=== PATIENT | female | born 1980 | race Caucasian/White ===

== ENCOUNTER 2020-02-13 00:23 | Outpatient (REF) | payer OTHER, SELFPAY ==
[2020-02-13 01:52] LABS: SARS COV2 PCR INHOUSE NEGATIVE (Negative)
== END 2020-02-13 00:24 | disposition home or self-care (01) ==
LOC: HO.LAB 00:23
PROVIDERS: Visit Provider Emergency Medicine
DX: Z20.828 Contact with and (suspected) exposure to other viral communicable diseases (principal)
CPT/HCPCS: 87635

== ENCOUNTER 2020-02-17 03:31 | Outpatient (REF) | payer OTHER, SELFPAY ==
[2020-02-17 05:34] LABS: SARS COV2 PCR INHOUSE NEGATIVE (Negative)
== END 2020-02-17 03:32 | disposition home or self-care (01) ==
LOC: HO.LAB 03:31
PROVIDERS: Visit Provider Internal Medicine
DX: Z20.828 Contact with and (suspected) exposure to other viral communicable diseases (principal)
CPT/HCPCS: 87635

== ENCOUNTER 2020-02-19 08:26 | Outpatient (REF) | payer OTHER, SELFPAY ==
[2020-02-19 08:49] LABS: COVID-19 Test Negative (Negative)
== END 2020-02-19 08:27 | disposition home or self-care (01) ==
LOC: HO.LAB 08:26
PROVIDERS: Visit Provider Internal Medicine
DX: Z20.828 Contact with and (suspected) exposure to other viral communicable diseases (principal)
CPT/HCPCS: 87635

== ENCOUNTER 2020-05-16 22:05 | Outpatient (REF) | payer OTHER, SELFPAY ==
[2020-05-16 22:32] LABS: COVID-19 Test Negative (Negative); IDNOW Serial# 9DD0AD1C
== END 2020-05-16 22:06 | disposition home or self-care (01) ==
LOC: HO.EMPCOV 22:05
PROVIDERS: Visit Provider Internal Medicine
DX: Z20.822 Contact with and (suspected) exposure to COVID-19 (principal)
CPT/HCPCS: 36415; 87635

== ENCOUNTER 2020-06-21 13:48 | Outpatient (REF) | payer OTHER, SELFPAY ==
[2020-06-21 14:16] LABS: COVID-19 Test Negative (Negative)
== END 2020-06-21 13:49 | disposition home or self-care (01) ==
LOC: HO.EMPCOV 13:48
PROVIDERS: Visit Provider Internal Medicine
DX: Z20.822 Contact with and (suspected) exposure to COVID-19 (principal)
CPT/HCPCS: 36415; 87635; C9803

== ENCOUNTER 2021-09-05 13:46 | Outpatient (REF) | payer OTHER, SELFPAY ==
[2021-09-05 14:23] LABS: COVID-19 Test Negative (Negative); IDNOW Serial# 08D9AD1C
== END 2021-09-05 13:47 | disposition home or self-care (01) ==
LOC: HO.LAB 13:46
PROVIDERS: Visit Provider Internal Medicine
DX: Z20.822 Contact with and (suspected) exposure to COVID-19 (principal)
CPT/HCPCS: 87635; C9803

== ENCOUNTER 2023-08-07 15:05 | Outpatient (REF) | payer OTHER, SELFPAY ==
[2023-08-08 06:32] LABS: CT PCR NOT DETECTED (Not Detect.); NG PCR NOT DETECTED (Not Detect.)
[2023-08-08 13:10] LABS: BV Int Neg Control Negative (Negative); BV Int Pos Control Positive (Positive)
[2023-08-15 23:03] LABS: HPV 16 RNA NOT DETECTED (NOT DETECTED); HPV mRNA E6/E7 rflx Detected (Not Detected)
== END 2023-08-07 15:06 | disposition home or self-care (01) ==
LOC: HO.LAB 15:05
PROVIDERS: Visit Provider Advanced Practice Midwife
DX: Z01.419 Encounter for gynecological examination (general) (routine) without abnormal findings (principal); Z11.51 Encounter for screening for human papillomavirus (HPV); Z20.2 Contact with and (suspected) exposure to infections with a predominantly sexual mode of transmission; N76.0 Acute vaginitis; B96.89 Other specified bacterial agents as the cause of diseases classified elsewhere
CPT/HCPCS: 0353U; 87480; 87510; 87624; 87625; 87660; 88142; 99386

== ENCOUNTER 2023-08-07 15:05 | Outpatient (AMB) | payer OTHER, SELFPAY ==
--- NOTE | 2023-08-07 15:11 | MHC.OFFVIS ---
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 She is to see the midwifery team years ago. She did have her babies with this practice years ago. She is now grandmother. She has not had a Pap smear in a couple of years she wants to restart with her care she needs a Pap smear and wants full testing for infection she sometimes is plagued occasionally with a fishy odor discharge the bothersome to her and so we did discuss BV some detail. She will be making primary care appointments soon as well but she wanted to start back with this she has not had a Paps here in a couple years nor mammogram [facility] Surgical History (Updated 08/07/23 @ 15:26 by Sandeep Claros [facility]) History of bilateral tubal ligation S/P Female Reproductive History Menstrual Duration of menses: 3-5 days Date of last menstrual period: 07/17/23 control method: permanent sterilization History of abnormal pap smear: No (unsure date) Physical Exam Vital Signs: Last Vital Signs BP 112/60 08/07/23 15:22 BMI result Body Mass Index 34.9 Const General: healthy appearing, comfortable, no acute distress, well developed and alert Nutritional Appearance: average body habitus Orientation/consciousness: patient oriented x3 Limitations: no limitations HEENT Head: Yes normocephalic Neck Neck: Yes normal visual inspection Chest Chest palpation & inspection: normal inspection of the chest Breast/axilla inspection: normal inspection of the breasts and normal inspection of the axillae Breast/axilla palpation: normal palpation of the breasts and normal palpation of the axillae Resp Effort & Inspection: normal respiratory effort GI Inspection: Yes normal to inspection, No Abdominal wall edema and No distended Palpation (GI): Soft to palpation and nontender Other: Vagina pink and moist there is a homogeneous white discharge coating the vaginal isbell. Cervix is multiparous pink smooth healthy appearing uterus is small anteverted mobile easy to feel nontender adnexa nontender good tone with Kegel. General: Yes bladder normal to palpation External Female Exam: normal external appearance and normal appearance of the urethra Speculum Exam - Vagina: normal appearance of the vagina, normal palpation and normal vaginal discharge Speculum Exam - Cervix: normal appearance of the cervix, normal palpation and nontender Bimanual exam- vagina & uterus: normal bimanual exam, normal palpation, uterine size normal, bladder normal to palpation, consistency normal, normal palpation, uterine mobility normal, uterine shape normal, No Cervical tenderness present, non-tender and no cervical motion tenderness Bimanual Exam- Adnexa, other: normal adnexae, no masses, normal and No adnexal tenderness Neuro General: patient oriented x3 Assessment & Plan Assessment & Plan (1) Well woman exam with routine gynecological exam: Code(s): Z01.419 - Encounter for gynecological examination (general) (routine) without abnormal findings (2) Bacterial vaginosis: Code(s): N76.0 - Acute vaginitis; B96.89 - Other specified bacterial agents as the cause of diseases classified elsewhere (3) Cervical cancer screening: Code(s): Z12.4 - Encounter for screening for malignant neoplasm of cervix (4) Encounter for screening examination for sexually transmitted disease: Code(s): Z11.3 - Encounter for screening for infections with a predominantly sexual mode of transmission (5) Breast cancer screening: Code(s): Z12.39 - Encounter for other screening for malignant neoplasm of breast Plan -----Discussed in this visit the following: healthy balanced diet, regular and consistent exercise, getting recommended health screens, doing the best she can for her particular health concerns, kegel exercises, pap smear screening and followup recommendations, mammography screening and SBE, normal changes in cycles in her life stage--- .---Discussed the current research around the phenomena of bacterial vaginosis, and the many factors involved in the increase and change in the prevalence of certain bacteria in the vagina, that contribute to the clingy discharge, the fishy malodor, and the discomfort, that many women experience very frequently in their lives. Discussed the many factors that can promote it, and current thinking about best options for treatment of both the a 1 time episode, or frequently occurring episodes. Discussed the role of partner condom use. Discussed that previously, treatment was recommended for both partners, but is not currently recommended today in 2020. Discussed the testing involved. Discussed treatment options including Flagyl, metronidazole gel, boric acid capsules and others. Testing for STIs discussed general health mammogram ordered done full teaching in discussion about BV see her in 1 year. 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 Prescription for metronidazole gel sent for use p.r.n.. Orders: Orders CT NG by PCR Today Z01.419 - Encounter for gynecological examination (general) (routine) without abnormal findings MM tomosynthesis screening BI Today Z12.31 - Encounter for screening mammogram for malignant neoplasm of breast HIV Ab/Ag Today B96.89 - Other specified bacterial agents as the cause of diseases classified elsewhere, N76.0 - Acute vaginitis, Z01.419 - Encounter for gynecological examination (general) (routine) without abnormal findings, Z11.3 - Encounter for screening for infections with a predominantly sexual mode of transmission, Z12.39 - Encounter for other screening for malignant neoplasm of breast, Z12.4 - Encounter for screening for malignant neoplasm of cervix Bacterial Vaginosis Panel Today Z20.2 - Contact with and (suspected) exposure to infections with a predominantly sexual mode of transmission Pap Smear Today Z01.419 - Encounter for gynecological examination (general) (routine) without abnormal findings Hepatitis B Surface Antigen Today B96.89 - Other specified bacterial agents as the cause of diseases classified elsewhere, N76.0 - Acute vaginitis, Z01.419 - Encounter for gynecological examination (general) (routine) without abnormal findings, Z11.3 - Encounter for screening for infections with a predominantly sexual mode of transmission, Z12.39 - Encounter for other screening for malignant neoplasm of breast, Z12.4 - Encounter for screening for malignant neoplasm of cervix Hepatitis C Antibody Today B96.89 - Other specified bacterial agents as the cause of diseases classified elsewhere, N76.0 - Acute vaginitis, Z01.419 - Encounter for gynecological examination (general) (routine) without abnormal findings, Z11.3 - Encounter for screening for infections with a predominantly sexual mode of transmission, Z12.39 - Encounter for other screening for malignant neoplasm of breast, Z12.4 - Encounter for screening for malignant neoplasm of cervix Syphilis Screen Today B96.89 - Other specified bacterial agents as the cause of diseases classified elsewhere, N76.0 - Acute vaginitis, Z01.419 - Encounter for gynecological examination (general) (routine) without abnormal findings, Z11.3 - Encounter for screening for infections with a predominantly sexual mode of transmission, Z12.39 - Encounter for other screening for malignant neoplasm of breast, Z12.4 - Encounter for screening for malignant neoplasm of cervix Medications: New metronidazole 0.75%(37.5mg/5gram) Use when necessary for evidence of recurrent bacterial vaginosis. 1 appful vaginal BID 5 days 1 kit 3RF Coding Level of Care Code New Pt Prev Care 18-39yr([id number] Diagnoses Well woman exam with routine gynecological exam Z01.419 Bacterial vaginosis N76.0; B96.89 Cervical cancer screening Z12.4 Encounter for screening examination for sexually transmitted disease Z11.3 Breast cancer screening Z12.39
[2023-08-07 15:22] VITALS: BP 112/60; BMI 34.9
== END 2023-08-07 16:04 | disposition home or self-care (01) ==
LOC: HO.HWSM 15:05
PROVIDERS: Visit Provider Advanced Practice Midwife
DX: Z01.419 Encounter for gynecological examination (general) (routine) without abnormal findings (principal); N76.0 Acute vaginitis; B96.89 Other specified bacterial agents as the cause of diseases classified elsewhere
CPT/HCPCS: 99386

== ENCOUNTER 2023-10-20 08:52 | Outpatient (REF) | payer OTHER, SELFPAY ==
--- NOTE | ~2023-10-20 | MM_ITS ---
EXAMINATION: MM SCREENING DIGITAL BREAST TOMOSYNTHESIS, BILATERAL CLINICAL INFORMATION: Screening. Asymptomatic. COMPARISON: Mammography: This is a baseline study. TECHNIQUE: Digital breast tomosynthesis is performed in both the craniocaudal and mediolateral oblique views along with computer-aided detection (CAD). Synthesized 2D images are generated from the tomosynthesis. FINDINGS: The breasts are heterogeneously dense, which may obscure small masses (ACR BI-RADS breast composition Category c). There are no significant masses, abnormal calcifications, or other abnormalities. MM/MM tomosynthesis screening BI IMPRESSION: No mammographic evidence of malignancy. ASSESSMENT: BI-RADS BI-RADS 1 - Negative RECOMMENDATION: Routine annual mammography screening. 1 year F/U This examination should not preclude the clinical evaluation of a suspicious palpable abnormality. This patient's information was entered into a reminder system with a target due date for their next mammogram.
== END 2023-10-20 08:53 | disposition home or self-care (01) ==
LOC: HO.MAMMO 08:52
PROVIDERS: Visit Provider Advanced Practice Midwife
DX: Z12.31 Encounter for screening mammogram for malignant neoplasm of breast (principal)
CPT/HCPCS: 77063; 77067

== ENCOUNTER → 2023-10-20 09:00 | Outpatient (BNV) | payer OTHER, SELFPAY | PROVIDERS: Visit Provider Radiology Diagnostic Radiology | DX: Z12.31 Encounter for screening mammogram for malignant neoplasm of breast (principal) | CPT/HCPCS: 77063; 77067 ==

== ENCOUNTER 2024-08-11 15:02 | Outpatient (REF) | payer OTHER, SELFPAY ==
--- OUTSIDE RECORDS SUMMARY | 2024-08-11 18:08 | XMS_ITS | Encounter Summary ---
Author Organization [facility] Address [address] [place] [address] Care Team Providers Care Reagent Tender Name Role Phone Krystal Ramesh MD Primary Care Provider Noel Torrez PA-C Primary Care Provider [phone] Sandie Barrios MD Primary Care Provider [phone] Reason for Visit * Reason Onset Date Comments TEST RESULTS 09/12/2016 Encounter Details Date Type Department Care Team Description 09/12/2016 Telephone Adult Medicine [address] [address] Krystal Ramesh MD TEST RESULTS Social History Tobacco Use Types Packs/Day Years Used Date Smoking Tobacco: Former Cigarettes 0.5 17 Smokeless Tobacco: Never Alcohol Use Standard Drinks/Week Comments No 0 (1 standard drink = 0.6 oz pur e alcohol) soc Sex Assigned at Date Recorded Not on file documented as of this encounter Miscellaneous Notes * Telephone Encounter - [place] M.A. - 09/12/2016 3:24 PM EDT Called patient and left vm message to call office back, if patient calls back please contact me at my [phone]. Dr. Ramesh is out of the office till Friday. Telephone Information: Mobile Not on file. * Telephone Encounter - Benjamin Lizama - 09/12/2016 3:05 PM EDT Inform patient: ANY URGENT OR ABNORMAL RESULTS WIILL RESULT IN A CALL BACK TO THE PATIENT JASON. Type of test: :lab test Date test was performed: July 2016 Where was the test performed: [facility] Who ordered this test?: Krystal Ramesh Is the doctor here today?: YES Can the message wait until the doctor returns?: NO IF PATIENT'S PCP IS NOT IN INSTRUCT PATIENT THAT THEY WILL RECEIVE A CALL BACK WHEN THE PCP IS IN THE OFFICE NEXT. documented in this encounter Plan of Treatment Not on file documented as of this encounter Visit Diagnoses Not on filedocumented in this encounter Care Teams Reagent Tender Relationship Specialty Start Date End Date Krystal Ramesh MD PCP - General 01/18/10 09/07/20 Noel Robin PA-C [address] [place] [phone] PCP - General Internal Medicine 09/08/20 12/08/22 Sandie Barrios MD [address] [place] [phone] PCP - General Internal Medicine 12/09/22 documented as of this encounter
--- OUTSIDE RECORDS SUMMARY | 2024-08-11 18:08 | XMS_ITS | Encounter Summary ---
Author Organization [facility] Address [address] [place] [address] Care Team Providers Care Sexton Helper Name Role Phone Krystal Ramesh MD Primary Care Provider Noel Torrez PA-C Primary Care Provider [phone] Sandie Barrios MD Primary Care Provider Encounter Details Date Type Department Care Team Description 10/03/2015 Hospital Medical Records [address] [place] [phone] Ok Chatman MD [address] [place] [address] [phone] Social History Tobacco Use Types Packs/Day Years [...] on filedocumented in this encounter Care Teams Sexton Helper Relationship Specialty Start Date End Date Krystal Ramesh MD PCP - General 01/18/10 09/07/20 Noel Robin PA-C [address] [place] [address] [phone] PCP - General Internal Medicine 09/08/20 12/08/22 Sandie Barrios MD [address] [place] [address] [phone] PCP - General Internal Medicine 12/09/22 documented as of this encounter
--- OUTSIDE RECORDS SUMMARY | 2024-08-11 18:08 | XMS_ITS | Clinical Summary ---
Author Organization [facility] Address [address] [place] [address] Care Team Providers Care Electronic Tech Name Role Phone Sandie Barrios MD Primary Care Provider [phone] Allergies No known active allergies Medications Medication Sig Dispensed Refills Start Date End Date Status ALBUTEROL SULFATE (ProAir HFA) 108 (90 Base) MCG/ACT Aero Soln Inhale 2 Puffs into the lungs every 6 hours as needed for Cough or Wheezing. Pt needs med f/u appt for further refills or 90 day supply 8.5 Inhaler 0 10/27/2020 Active citalopram (CeleXA) 20 MG tablet Take 1 Tablet by mouth daily. 30 Tablet 2 03/26/2023 Active Active Problems Problem Noted Date Iron deficiency 02/11/2019 Anxiety and depression 02/10/2019 Insomnia due to other mental disorder Asthma 01/02/2012 Depression 04/11/2011 Resolved Problems Problem Noted Date Resolved Date Supervision of normal in first trimest er 03/08/2015 12/04/2015 Overview: 08/10/15 ZIKA SCREEN NEGATIVE Trich and BV at IP (14 wks) High grade pap at IP; needs PP pap 1. [facility] site: [facility] 2. Delivery site: [facility] 3. Dating criteria: 1st trimester ultrasound only 3. Blood type: O-Positive 4. Genetic screening: Date: Result: 5. GBS: Date: 6. FOB name: José Miguel Hackett 7. Plans A. Epidural or other pain management - B. Labor support identified - C. Tdap - Date: D. Breast or Bottle feed: E. Baby's name - F. Circumcision - Depo --> BTL for PP contraception Immunizations Name Administration Dates Next Due COVID-19 (Moderna) PT Reported 07/26/2020,2020 Hepatitis B > 19yrs 11/25/2018,06/24/2018,2018 Influenza (> 6 Months) 02/07/2020,04/03/2016,09/2013 Influenza Vaccine-quadrivalent 4 Years Plus 12/28 Qwxzevv-Zupyl-Qnamtyhk + 05/11/2015 Qnpmd-Jxquj-Xynyyuho + 05/11/2015 PPD-RBMG 02/14/2015,05/02/2011,04/11/2011 Pneumoccoccal(Adult) Polysaccharide PPSV23 04/09 Xuqsvzx-Rnuxm-Xrnrukdt + 05/11/2015,03/08/2015 Tdap 09/07/2015,04/11/2011 Varicella Titre-Positive + 03/08/2015 Family History Medical History Relation Name Comments No Known Problems Brother 1 half pater nal No Known Problems Brother 2 half pater nal No Known Problems Daughter 1 06/16/09: K liza; healthy No Known Problems Daughter 2 10/03/2015; Nicolette; healthy No Known Problems Father CA Colon Maternal Grandfather CA Breast Maternal Grandmother unknown age Cataract Maternal Grandmother No Known Problems Mother No Known Problems Paternal Grandfather No Known Problems Paternal Grandmother No Known Problems Sister 1 No Known Problems Sister 2 No Known Problems Sister 3 No Known Problems Sister 4 No Known Problems Son 1 11/22/97; Sree ward; healthy No Known Problems Son 2 03/09/04; Bridger; healthy [place] Ovarian Negative Hx Diabetes Negative Hx IN Negative Hx Stroke Negative Hx Uterine Cancer Negative Hx Relation Name Status Comments Brother 1 [...] Former Cigarettes 0.5 17 Smokeless Tobacco: Never Tobacco Cessation:Counseling Given: Not Answered Alcohol Use Standard Drinks/Week Comments No 0 (1 standard drink = 0.6 oz pur e alcohol) soc Sex Assigned at Date Recorded Not on file Last Filed Vital Signs Vital Sign Reading Time Taken Comments Blood Pressure 120/64 03/26/2023 3:38 PM EST Pulse 90 03/26/2023 3:38 PM EST Temperature 36.4 ??C (97.6 ??F) 03/26/2023 3:38 PM ES T Respiratory Rate 16 03/26/2023 3:38 PM EST Oxygen Saturation 98% 03/26/2023 3:38 PM EST Inhaled Oxygen Concentration - - Weight 88 kg (194 lb) 03/26/2023 3:38 PM EST Height 160 cm (5' 3 ) 03/26/2023 3:38 PM EST Body Mass Index 34.37 03/26/2023 3:38 PM EST Plan of Treatment Health Maintenance Due Date Last Done Comments CERVICAL CANCER SCREENING 12/03/20182015, 04/04/2015, 05/06/2011, Additional history exists BASELINE HEALTH EXAM 40-64 11/13/202108/14, 08/14/2018, 04/23/2017, Additional history exists MAMMOGRAM 2021 CHOLESTEROL SCREENING 08/15/2023 08/14/2018, 011 Covid-19 Vaccine (2022-05 4 season) 2023 07/26/2020, 05/13/2020 BMI CHECK/ADVISE 04/28/2024 02/10/2019, , 12/31/2018, Additional history exists DEPRESSION SCREENING/FOLLOWUP 04/28/2024, 03/26/2023, 03/10/2023, Additional history exists SOCIAL NEEDS SCREENING 04/28/2024 INFLUENZA (Season Ended) 2024 020, 01/11/2019, 01/21/2017, Additional history exists DTAP/TDAP/TD (3 - Td or Tdap) 09/06/2025 09/07/2015, 04/11/2011 PNEUMOCOCCAL VACCINE FOR HIG H RISK PATIENTS (#2) 2046 04/09/2016 Care Teams Electronic Tech Relationship Specialty Start Date End Date Sandie Barrios MD [address] [place] [id number] PCP - General Internal Medicine 12/09/22
--- OUTSIDE RECORDS SUMMARY | 2024-08-11 18:08 | XMS_ITS | Encounter Summary ---
Author Organization [facility] Address [address] [place] [address] Care Team Providers Care Naphthol Soaping Machine Operator Name Role Phone Krystal Ramesh MD Primary Care Provider Noel Torrez PA-C Primary Care Provider [phone] Sandie Barrios MD Primary Care Provider [phone] Encounter Details Date Type Department Care Team Description 05/07/2011 Release of Information Medical Records [address] [place] [address] Abstract, Provider Social History Tobacco Use Types Packs/Day Years Used Date Smoking Tobacco: Every Day Cigarettes 0.5 Smokeless Tobacco: Current Alcohol Use Standard Drinks/Week Comments No 0 (1 standard drink = 0.6 oz pur e alcohol) Sex Assigned at Date Recorded Not on file documented as of this encounter Plan of Treatment Not on file documented as of this encounter Visit Diagnoses Not on filedocumented in this encounter Care Teams Naphthol Soaping Machine Operator Relationship Specialty Start Date End Date Krystal Ramesh MD PCP - General 01/18/10 09/07/20 Noel Robin PA-C [address] [place] [address] PCP - General Internal Medicine 09/08/20 12/08/22 Sandie Barrios MD [address] [place] [phone] PCP - General Internal Medicine 12/09/22 documented as of this encounter
--- OUTSIDE RECORDS SUMMARY | 2024-08-11 18:08 | XMS_ITS | Encounter Summary ---
Author Organization [facility] Address [address] [place] [address] Care Team Providers Care Caustic Strength Inspector Name Role Phone Krystal Ramesh MD Primary Care Provider Noel Torrez PA-C Primary Care Provider [phone] Sandie Barrios MD Primary Care Provider [phone] Reason for Visit * Reason Comments E-prescribe Rx Request Encounter Details Date Type Department Care Team Description 10/12/2017 Refill Adult Medicine [address] [address] Vikki Aguiar PA-C [address] [place] [address] E-prescribe Rx Request Social History Tobacco Use Types Packs/Day Years Used Date Smoking Tobacco: Former Cigarettes 0.5 17 Smokeless Tobacco: Never Alcohol Use Standard Drinks/Week Comments No 0 (1 standard drink = 0.6 oz pur e alcohol) soc Sex Assigned at Date Recorded Not on file documented as of this encounter Miscellaneous Notes * Telephone Encounter - Krystal Ramesh MD - 10/13/2017 1:20 PM EDT Per telephone encounter 06/24/17, D/c trazodone, start hydroxyzine when necessary sleep. Referral to behavioral health placed Refill declined * Telephone Encounter - Deja Gerard - 10/13/2017 12:48 PM EDT Patient would like script to be: E-PRESCRIBED/FAXED TO PHARMACY WHEN WAS THE PATIENT'S LAST APPOINTMENT IN ADULT MEDICINE? 04/23/17 WHEN WAS THE LAST TIME THE PATIENT SAW THEIR PCP? 03/03/14 Does patient have an upcoming appointment? Will call to book (THE MEDICATION REQUESTED IS ON THE MED LIST ABOVE) All of the medications requested were on the CURRENT MEDS list Did you check the Pharmacy information above?: YES Patient wants: 30 -day supply Is this a mail order prescription request ? NO Patients current insurance carrier is: Payor: [employer]/MAX[employer]OO POS / Plan: PPO $30 MAYER [id number] / ProductType: PPO [id number] documented in this encounter Plan of Treatment Not on file documented as of this encounter Visit Diagnoses Not on filedocumented in this encounter Care Teams Caustic Strength Inspector Relationship Specialty Start Date End Date Krystal Ramesh MD PCP - General 01/18/10 09/07/20 Noel Robin PA-C [address] [place] [address] PCP - General Internal Medicine 09/08/20 12/08/22 Sandie Barrios MD [address] [place] [address] PCP - General Internal Medicine 12/09/22 documented as of this encounter
--- OUTSIDE RECORDS SUMMARY | 2024-08-11 18:08 | XMS_ITS | Clinical Summary ---
Author Organization [address] Address [address] [place] [address] Phone Care Team Providers Care Insurance Commissioner Name Role Phone Sandie Barrios MD Primary Care Provider [phone] Allergies No known active allergies Medications albuterol [...] PM EST Hospital Encounter Radiology Department - [address] [phone] Abnormal findings on diagnostic imaging of gallbladder Discharge Disposition: Home or Self Care 05/17/2024 8:30 AM EST - 05/17/2024 11:59 PM EST Hospital Encounter Radiology Department - [address] [phone] Elevated lipase; Pancreatic abnormality Discharge Disposition: Home or Self Care from Last 3 Months Immunizations Name Administration Dates Next Due Hepatitis B (Ikcrwbm-Q-Kasih , Recombivax HB-Adult) 19yo and older 11/25/2018,06/24/2018,05/20/2018 [...] PROCEDURE: HISTORICAL PE TUBES SECTION 10/03/2015 PROCEDURE: MD DELIVERY ONLY Medical History Medical History Date [...] 3:20 PM EDT Consult Gastroenterology - [facility] [address] [phone] Norbert Decker MD [address] [address] 11/19/2024 9:30 AM EDT Office Visit Adult Medicine [address] [address] Sandie Barrios MD [address] [place] [address] Health Maintenance Due Date Last Done Comments [...] Signed Date: 06/21/2024 09:38 ET Workstation ID: [id number] Transcribed By: Self Edit Transcribed Date: 06/21/2024 [...] Signed Date: 06/21/2024 09:38 ET Workstation ID: [id number] Transcribed By: Self Edit Transcribed Date: 06/21/2024 [...] Signed Date: 05/17/2024 15:03 ET Workstation ID: [id number] Transcribed By: Self Edit Transcribed Date: 05/17/2024 [...] Signed Date: 05/17/2024 15:03 ET Workstation ID: [id number] Transcribed By: Self Edit Transcribed Date: 05/17/2024 14:33 ET Abida Raleigh KOEHLER IMG MRI PROCEDURES Final Result * Cervical Cancer Screening: HPV (12/04/2015) [facility] Cervical Cancer Screening: HPV abstracted, positive Result [facility] Historical Provider HEALTH MAINTENANCE Final Result * HIV Screening (03/08/2015) [facility] HIV Screening abstracted Historical Provider HEALTH MAINTENANCE Final Result * Hepatitis C Screening (09/27/2011) [facility] Hepatitis C Screening abstracted Historical Provider HEALTH MAINTENANCE Final Result from Last 3 Months or Most Recently Relevant to Health Maintenance Insurance [facility] [employer] Care Teams Insurance Commissioner Relationship Specialty Start Date End Date Sandie Barrios MD [address] [place] [address] PCP - General Internal Medicine 12/09/22
--- OUTSIDE RECORDS SUMMARY | 2024-08-11 18:08 | XMS_ITS | Encounter Summary ---
Author Organization [facility] Address [address] [place] [address] Care Team Providers Care Powersaw Supervisor Name Role Phone Krystal Ramesh MD Primary Care Provider Noel Torrez PA-C Primary Care Provider [phone] Sandie Barrios MD Primary Care Provider [phone] Encounter Details Date Type Department Care Team Description 12/26/2016 Polo Coach Report Medical Records [address] [place] [address] Norbert Maria Social History Tobacco Use Types Packs/Day Years [...] on filedocumented in this encounter Care Teams Powersaw Supervisor Relationship Specialty Start Date End Date Krystal Ramesh MD PCP - General 01/18/10 09/07/20 Noel Robin PA-C [address] [place] [address] PCP - General Internal Medicine 09/08/20 12/08/22 Sandie Barrios MD [address] [place] [phone] PCP - General Internal Medicine 12/09/22 documented as of this encounter
--- OUTSIDE RECORDS SUMMARY | 2024-08-11 18:08 | XMS_ITS | Encounter Summary ---
Author Organization [facility] Address [address] [place] [address] Care Team Providers Care Coconut Candy Maker Name Role Phone Sandie Barrios MD Primary Care Provider [phone] Reason for Visit * Reason Onset Date Comments Medication 08/12/2023 Vomiting 08/12/2023 Encounter Details Date Type Department Care Team Description 08/12/2023 Telephone Adult Medicine [address] [address] Sandie Barrios MD [address] [place] [address] [phone] Medication; Vomiting Social History Tobacco Use Types Packs/Day Years Used Date Smoking Tobacco: Former Cigarettes 0.5 17 Smokeless Tobacco: Never Alcohol Use Standard Drinks/Week Comments No 0 (1 standard drink = 0.6 oz pur e alcohol) soc Sex Assigned at Date Recorded Not on file documented as of this encounter Miscellaneous Notes * Telephone Encounter - Pat Ingram RN - 08/12/2023 9:39 AM EDT Pt's citalopram was increased to 20 mg on 03/26/23. She reports nausea and vomiting since starting this medication. She stopped the medication over one month ago. The nausea and vomiting have since subsided. Pt is reporting an increase in anxiety for one month. She denies hallucinations (auditory, tactile or visual). No paranoia. She has no new onset of confusion. She denies suicidal threat or gesture. No palpitations. She denies an inability to function. No extreme anxiety. She denies hyperventilation unresponsive to home care measures. No profuse sweating. She denies persistent upset stomach that interferes with activity. No lightheadedness. She denies drug or alcohol abuse. She reports recent abrupt cessation of drugs (OTC or prescription) CITALOPRAM. She reports slight difficulty sleeping. She reports history of anxiety episodes. No recent onset. He denies intermittent episodes. She reports contributing cause, such as stress; change in relationship, or finances. She denies physiologic or psychological symptoms. She has not followed up with behavioral health as of yet. She requested a list of behavioral healthcenters be mailed to her. She was instructed to call the office with any new or worsening symptoms. * Telephone Encounter - Hernandez Lazo - 08/12/2023 9:20 AM EDT Symptoms patient is presenting: The patient states that she was placed on a medication some time ago and she has been experiencing some nausea and vomiting upon taking the medication and she would like her provider to know as she has stopped taking the medication For ALL patients calling to schedule any appointment (routine, sick visit, follow up, consult, etc.) in the outpatient setting please ask the following questions: ?? Do you have fever of higher than 101, sore throat with difficulty swallowing or severe shortnessof breath? NO If YES to any of these above symptoms, send a message to triage and do not book. Red dot. If no, an audio or video visit should be booked. ?? Have you had close contact with someone with Coronavirus in the last 14 days? NO ?? Have you traveled abroad? NO ?? Have you traveled recently to another state outside of [place], [place], [place], [place], [place], [place], [place]? NO o If yes, did you quarantine for 14 days or have a negative covid test? NO If yes to any of the above, patient is not to be scheduled in office until after 14 day quarantine or negative covid test. If pain or injury related was it due to an accident at work or from a motor vehicle accident? NO If yes, gather 3rd alliance party insurance information Date of accident/Injury: How long has patient had these symptoms?: A few months PCP: Snadie Barrios Payor: [facility] MEDICAID / Plan: [facility] MEDICAID HMO $0 LAURA / Product Type: HMO [id number] documented in this encounter Plan of Treatment Not on file documented as of this encounter Visit Diagnoses Not on filedocumented in this encounter Care Teams Coconut Candy Maker Relationship Specialty Start Date End Date Sandie Barrios MD [address] [place] [phone] PCP - General Internal Medicine 12/09/22 documented as of this encounter
--- OUTSIDE RECORDS SUMMARY | 2024-08-11 18:08 | XMS_ITS | Encounter Summary ---
Author Organization [facility] Address [address] [place] [address] Care Team Providers Care Ruby Software Developer Name Role Phone Krystal Ramesh MD Primary Care Provider Noel Torrez PA-C Primary Care Provider [phone] Sandie Barrios MD Primary Care Provider [phone] Encounter Details Date Type Department Care Team Description 03/08/2015 Release of Information Medical Records [address] [place] [id number] Abstract, Provider Social History Tobacco Use Types [...] on filedocumented in this encounter Care Teams Ruby Software Developer Relationship Specialty Start Date End Date Krystal Ramesh MD PCP - General 01/18/10 09/07/20 Noel Robin PA-C [address] [place] [address] PCP - General Internal Medicine 09/08/20 12/08/22 Sandie Barrios MD [address] [place] [address] PCP - General Internal Medicine 12/09/22 documented as of this encounter
--- OUTSIDE RECORDS SUMMARY | 2024-08-11 18:08 | XMS_ITS | Encounter Summary ---
Author Organization [facility] Address [address] [place] [address] Care Team Providers Care Manager Financial Systems Name Role Phone Sandie Barrios MD Primary Care Provider [phone] Reason for Visit * Reason Comments E-prescribe Rx Request Encounter Details Date Type Department Care Team Description 03/10/2023 Refill Adult Medicine [facility] [address] [place] [address] Kecia Gaytan PA-C [address] [place] [address] E-prescribe Rx Request Social History Tobacco Use Types Packs/Day Years Used Date Smoking Tobacco: Former Cigarettes 0.5 17 Smokeless Tobacco: Never Alcohol Use Standard Drinks/Week Comments No 0 (1 standard drink = 0.6 oz pur e alcohol) soc Sex Assigned at Date Recorded Not on file documented as of this encounter Miscellaneous Notes * Telephone Encounter - Kecia Gaytan PA-C - 03/11/2023 12:32 PM EST Ok to fill. Carmen Esposito * Telephone Encounter - Taylor Smith M.A. - 03/11/2023 7:17 AM EST Last office visit 01/07/23 Next office visit 03/26/23 Pt canceled last 2 appts. Set up for just enough until upcoming visit. Lab Results Component Value Date ALB 3.5 12/31/2018 SGOT 9 12/31/2018 SGPT 14 12/31/2018 TBILI 0.3 12/31/2018 ALKPHOS 102 12/31/2018 TP 7.2 12/31/2018 * Telephone Encounter - Yolanda Liao - 03/10/2023 9:36 PM EST Patient would like script to be: E-PRESCRIBED/FAXED TO PHARMACY WHEN WAS THE PATIENT'S LAST APPOINTMENT IN ADULT MEDICINE? 01/07/23 WHEN WAS THE LAST TIME THE PATIENT SAW THEIR PCP? Same as above Does patient have an upcoming appointment? Yes 03/26/23 (THE MEDICATION REQUESTED IS ON THE MED LIST ABOVE) All of the medications requested were on the CURRENT MEDS list Did you check the Pharmacy information above?: YES Patient wants: 30 -day supply Is this a mail order prescription request ? NO If the refill is from a FAXED refill request what is the RX # listed on the fax? N/A Patients current insurance carrier is: Payor: [facility] MEDICAID / Plan: [facility] MEDICAID HMO $0 CEBOLLA / Product Type: HMO [id number] documented in this encounter Plan of Treatment Not on file documented as of this encounter Visit Diagnoses Not on filedocumented in this encounter Care Teams Manager Financial Systems Relationship Specialty Start Date End Date Sandie Barrios MD [address] [place] [phone] PCP - General Internal Medicine 12/09/22 documented as of this encounter
--- OUTSIDE RECORDS SUMMARY | 2024-08-11 18:08 | XMS_ITS | Encounter Summary ---
Author Organization [facility] Address [address] [place] [address] Care Team Providers Care President Commercial Bank Name Role Phone Noel Robin PA-C Primary Care Provider [phone] Sandie Barrios MD Primary Care Provider [phone] Reason for Visit * Reason Comments E-prescribe Rx Request Encounter Details Date Type Department Care Team Description 10/09/2020 Refill Adult Medicine [address] [address] Neville Ramirez MD E-prescribe Rx Request Social History Tobacco Use Types Packs/Day Years Used Date Smoking Tobacco: Former Cigarettes 0.5 17 Smokeless Tobacco: Never Alcohol Use Standard Drinks/Week Comments No 0 (1 standard drink = 0.6 oz pur e alcohol) soc Sex Assigned at Date Recorded Not on file documented as of this encounter Miscellaneous Notes * Telephone Encounter - Tamara Bailey M.A. - 10/10/2020 10:26 AM EDT Last visit 08/24/20 No f/u * Telephone Encounter - Diann Valdovinos - 10/09/2020 10:57 AM EDT Patient would like script to be: E-PRESCRIBED/FAXED TO PHARMACY WHEN WAS THE PATIENT'S LAST APPOINTMENT IN ADULT MEDICINE? 09/08/20 WHEN WAS THE LAST TIME THE PATIENT SAW THEIR PCP? 06/06/15 Does patient have an upcoming appointment? No-patient refused appointment, will call back to book appointment (THE MEDICATION REQUESTED IS ON THE MED LIST ABOVE) All of the medications requested were on the CURRENT MEDS list Did you check the Pharmacy information above?: YES Patient wants: 90 -day supply Is this a mail order prescription request ? NO If the refill is from a FAXED refill request what is the RX # listed on the fax? N/A Patients current insurance carrier is: Payor: [employer] MEDICA[employer] / Plan: [employer] HMO $0 [place] / Product Type: HMO [id number] documented in this encounter Plan of Treatment Not on file documented as of this encounter Visit Diagnoses Not on filedocumented in this encounter Care Teams President Commercial Bank Relationship Specialty Start Date End Date Noel Robin PA-C [address] [place] [address] PCP - General Internal Medicine 09/08/20 12/08/22 Sandie Barrios MD [address] [place] [address] PCP - General Internal Medicine 12/09/22 documented as of this encounter
--- OUTSIDE RECORDS SUMMARY | 2024-08-11 18:08 | XMS_ITS | Encounter Summary ---
Author Organization [facility] Address [address] [place] [address] Care Team Providers Care Roll Cutting Operator Name Role Phone Krystal Ramesh MD Primary Care Provider Noel Torrez PA-C Primary Care Provider [phone] Sandie Barrios MD Primary Care Provider [phone] Reason for Visit * Reason Onset Date Comments LAB WORK 10/04/2019 Encounter Details Date Type Department Care Team Description 10/04/2019 Telephone Adult Medicine [address] [address] Krystal Ramesh MD LAB WORK Social History Tobacco Use Types Packs/Day Years Used Date Smoking Tobacco: Former Cigarettes 0.5 17 Smokeless Tobacco: Never Alcohol Use Standard Drinks/Week Comments No 0 (1 standard drink = 0.6 oz pur e alcohol) soc Sex Assigned at Date Recorded Not on file documented as of this encounter Miscellaneous Notes * Telephone Encounter - Wendy Mendoza M.A. - 10/06/2019 2:41 PM EDT Patient scheduled. * Telephone Encounter - RODO Peacock - 10/04/2019 11:56 AM EDT Please schedule pt for video (if possible) or audio visit with PCP care team for further evaluation. * Telephone Encounter - Leena Pineda R.N. - 10/04/2019 11:45 AM EDT Result Notes recorded by RODO Peacock on 10/04/2019 at 11:38 AM EDT Pt not seen in almost 8 mos. Elevated WBC count. Please triage for signs, sxs of infection? Call to patient- had tests drawn 10/01/19- Denies stress, no urinary problems- no cough, no fever, body aches/ chills, no loss of taste/ smell, stools have been looser-x 1 year- no recent change, no abdominal pain, FYI to Charles Amaya- documented in this encounter Plan of Treatment Not on file documented as of this encounter Visit Diagnoses Not on filedocumented in this encounter Care Teams Roll Cutting Operator Relationship Specialty Start Date End Date Krystal Ramesh MD PCP - General 01/18/10 09/07/20 Noel Robin PA-C [address] [place] [address] PCP - General Internal Medicine 09/08/20 12/08/22 Sandie Barrios MD [address] [place] [address] PCP - General Internal Medicine 12/09/22 documented as of this encounter
--- OUTSIDE RECORDS SUMMARY | 2024-08-11 18:08 | XMS_ITS | Encounter Summary ---
Author Organization [facility] Address [address] [place] [address] Care Team Providers Care Finance Officer Name Role Phone Krystal Ramesh MD Primary Care Provider Noel Torrez PA-C Primary Care Provider [phone] Sandie Barrios MD Primary Care Provider [phone] Reason for Visit * Reason Comments E-prescribe Rx Request Encounter Details Date Type Department Care Team Description 07/22/2020 Refill Adult Medicine [address] [id number] Elliott Braxton MD [address] [place] [address] [phone] E-prescribe Rx Request Social History Tobacco Use Types Packs/Day Years Used Date Smoking Tobacco: Former Cigarettes 0.5 17 Smokeless Tobacco: Never Alcohol Use Standard Drinks/Week Comments No 0 (1 standard drink = 0.6 oz pur e alcohol) soc Sex Assigned at Date Recorded Not on file documented as of this encounter Miscellaneous Notes * Telephone Encounter - Elva Lore - 07/24/2020 11:14 AM EDT Patient would like script to be: E-PRESCRIBED/FAXED TO PHARMACY WHEN WAS THE PATIENT'S LAST APPOINTMENT IN ADULT MEDICINE? 10/07/19 WHEN WAS THE LAST TIME THE PATIENT SAW THEIR PCP? 03/03/14 Does patient have an upcoming appointment? No- patient refused to book appointment (THE MEDICATION REQUESTED IS [...] N/A Patients current insurance carrier is: Payor: [facility] MEDICAID / Plan: [employer] MED[place] HMO $0 [place] / Product Type: HMO [id number] documented in this encounter Plan of Treatment Not on file documented as of this encounter Visit Diagnoses Not on filedocumented in this encounter Care Teams Finance Officer Relationship Specialty Start Date End Date Krystal Ramesh MD PCP - General 01/18/10 09/07/20 Noel Robin PA-C [address] [place] [address] PCP - General Internal Medicine 09/08/20 12/08/22 Sandie Barrios MD [address] [place] [address] PCP - General Internal Medicine 12/09/22 documented as of this encounter
--- OUTSIDE RECORDS SUMMARY | 2024-08-11 18:08 | XMS_ITS | Encounter Summary ---
Author Organization [facility] Address [address] [place] [address] Care Team Providers Care Surgical Training Specialist Name Role Phone Krystal Ramesh MD Primary Care Provider Noel Torrez PA-C Primary Care Provider [phone] Sandie Barrios MD Primary Care Provider [phone] Encounter Details Date Type Department Care Team Description 08/10/2015 Zika Virus Medical Records [address] [place] [address] Abstract, Provider Social History Tobacco Use Types [...] on filedocumented in this encounter Care Teams Surgical Training Specialist Relationship Specialty Start Date End Date Krystal Ramesh MD PCP - General 01/18/10 09/07/20 Noel Robin PA-C [address] [place] [address] PCP - General Internal Medicine 09/08/20 12/08/22 Sandie Barrios MD [address] [place] [address] PCP - General Internal Medicine 12/09/22 documented as of this encounter
--- OUTSIDE RECORDS SUMMARY | 2024-08-11 18:08 | XMS_ITS | Encounter Summary ---
Author Organization [facility] Address [address] [place] [address] Care Team Providers Care Secondary Set Up Man Name Role Phone Krystal Ramesh MD Primary Care Provider Noel Torrez PA-C Primary Care Provider [phone] Sandie Barrios MD Primary Care Provider [phone] Encounter Details Date Type Department Care Team Description 09/10/2018 Release of Information Medical Records [address] [place] [address] Abstract, Provider Social History Tobacco Use Types [...] on filedocumented in this encounter Care Teams Secondary Set Up Man Relationship Specialty Start Date End Date Krystal Ramesh MD PCP - General 01/18/10 09/07/20 Noel Robin PA-C [address] [place] [address] PCP - General Internal Medicine 09/08/20 12/08/22 Sandie Barrios MD [address] [place] [address] PCP - General Internal Medicine 12/09/22 documented as of this encounter
--- OUTSIDE RECORDS SUMMARY | 2024-08-11 18:08 | XMS_ITS | Encounter Summary ---
Author Organization [facility] Address [address] [place] [address] Care Team Providers Care Bobbin Painter Name Role Phone Krystal Ramesh MD Primary Care Provider Noel Torrez PA-C Primary Care Provider [phone] Sandie Barrios MD Primary Care Provider [phone] Reason for Visit * Reason Comments E-prescribe Rx Request Encounter Details Date Type Department Care Team Description 02/19/2019 Refill Adult Medicine [address] [address] Neville Ramirez MD E-prescribe Rx Request Social History Tobacco Use Types Packs/Day Years Used Date Smoking Tobacco: Former Cigarettes 0.5 17 Smokeless Tobacco: Never Alcohol Use Standard Drinks/Week Comments No 0 (1 standard drink = 0.6 oz pur e alcohol) soc Sex Assigned at Date Recorded Not on file documented as of this encounter Miscellaneous Notes * Telephone Encounter - Deja Rajani - 02/21/2019 4:37 PM EDT Patient would like script to be: E-PRESCRIBED/FAXED TO PHARMACY WHEN WAS THE PATIENT'S LAST APPOINTMENT IN ADULT MEDICINE? 02/10/19 WHEN WAS THE LAST TIME THE PATIENT SAW THEIR PCP? Has not seen Does patient have an upcoming appointment? Will [...] N/A Patients current insurance carrier is: Payor: [facility] MEDICAID / Plan: [facility] MEDICAID HMO $0 [place] / Product Type: HMO [id number] documented in this encounter Plan of Treatment Not on file documented as of this encounter Visit Diagnoses Not on filedocumented in this encounter Care Teams Bobbin Painter Relationship Specialty Start Date End Date Krystal Ramesh MD PCP - General 01/18/10 09/07/20 Noel Robin PA-C [address] [place] [address] PCP - General Internal Medicine 09/08/20 12/08/22 Sandie Barrios MD [address] [place] [address] PCP - General Internal Medicine 12/09/22 documented as of this encounter
== END 2024-08-11 15:03 | disposition home or self-care (01) ==
LOC: HO.LAB 15:02
PROVIDERS: Visit Provider Advanced Practice Midwife
DX: Z01.419 Encounter for gynecological examination (general) (routine) without abnormal findings (principal); R87.810 Cervical high risk human papillomavirus (HPV) DNA test positive; R87.610 Atypical squamous cells of undetermined significance on cytologic smear of cervix (ASC-US)
CPT/HCPCS: 81515; 87491; 87591; 87626; 88175; 99396; 99459

== ENCOUNTER 2024-08-11 15:02 | Outpatient (AMB) | payer OTHER, SELFPAY ==
--- NOTE | 2024-08-11 15:02 | A.OFFVIS_ITS ---
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 Patient was well known to this provider over 20 years ago when she came to the midwifery group for care during 3 of her pregnancies. She says she never got message last year or a letter about the abnormal Pap and does not remember hearing anything about it. Patient had it an abnormal Pap with ASCUS positive HPV and attempts to reach her were not successful. Discussed with the patient at the beginning of the visit that she had needed a colposcopy last year and depending on results we will be following up and I do not want her to not follow-up so I asked her to proactively call and speak with me about the results next week so that nothing gets missed inadvertently. 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 [employer] Female Reproductive History Menstrual Age of Menarche: 13 Duration of menses: 3-5 days Date of last menstrual period: 07/23/24 control method: permanent sterilization Total pregnancies: 5 Full term: 4 Ab induced: 1 Date of last pap smear: 08/07/23 (positive pap smear/hpv) History of abnormal pap smear: No Date of Mammogram: 10/20/23 (bi rad 1) Physical Exam Vital Signs: Last Vital Signs BP 126/78 08/11/24 15:19 BMI result Body Mass Index 33.7 Const General: healthy appearing, comfortable, no acute distress, well developed and alert Nutritional Appearance: average body habitus Orientation/consciousness: patient oriented x3 Limitations: no limitations HEENT Head: Yes normocephalic Neck Neck: Yes normal visual inspection Chest Chest palpation & inspection: normal inspection of the chest Breast/axilla inspection: normal inspection of the breasts and normal inspection of the axillae Breast/axilla palpation: normal palpation of the breasts and normal palpation of the axillae Resp Effort & Inspection: normal respiratory effort GI Inspection: Yes normal to inspection, No Abdominal wall edema and No distended Palpation (GI): Soft to palpation and nontender Other: External exam appears completely within normal limits vagina pink and moist cervix is pink smooth very healthy appearing no abnormal discharge no lesions notable whatsoever. Cervix is long close thick mobile nontender uterus midposition mobile nontender good tone with Kegel. No tenderness anywhere. General: Yes bladder normal to palpation External Female Exam: normal external appearance and normal appearance of the urethra Speculum Exam - Vagina: normal appearance of the vagina, normal palpation and normal vaginal discharge Speculum Exam - Cervix: normal appearance of the cervix, normal palpation and nontender Bimanual exam- vagina & uterus: normal bimanual exam, normal palpation, uterine size normal, bladder normal to palpation, consistency normal, normal palpation, uterine mobility normal, uterine shape normal, No Cervical tenderness present, non-tender and no cervical motion tenderness Bimanual Exam- Adnexa, other: normal adnexae, no masses, normal and No adnexal tenderness Neuro General: patient oriented x3 Results Reviewed Results Reviewed: Name: Nolvia Burks Age/Sex: 42/F Attending: Marissa Rodriguez CNM : 1980 Submitted by: Marissa Rodriguez CNM Copies to: MR #: [id number] Status: DEP REF Collected: 08/07/23 Location: .LAB Received: 08/12/23 Interpretation General Category: Epithelial cell abnormality. Adequacy: Endocervical component present. Interpretation: Atypical squamous cells of undetermined significance. Clue cells present. HPV mRNA E6/E7: DETECTED This assay detects E6/E7 viral messenger RNA (mRNA) from 14 high-risk HPV types (16, 18, 31, 33, 35, 39, 45, 51, 52, 56, 58, 59, 66, 68) HPV Type 16 RNA: Not Detected HPV Type 18/45 RNA: Not Detected HPV testing performed by [employer], [place], [place]. See reference laboratory portion of the EMR for entire report. Clinical Information LMP: 07/17/23 Previous PAP test: Unknown date/findings Material Received ThinPrep-Cervical Electronically Signed By: Tatiana Weston 08/26/23 1019 The Pap Test is a screening procedure with the inherent possibility of both false negative and false positive results. Results should be interpreted in the context of historic and current clinical findings. Reliabilit y of the Pap Test is enhanced by performing the test on a regular repetitive basis. Patient: Nolvia Burks Age/Sex: 42/F MR#: [id number] Page 1 of 1 Assessment & Plan Assessment & Plan (1) Well woman exam with routine gynecological exam: Code(s): Z01.419 - Encounter for gynecological examination (general) (routine) without abnormal findings Category: Medical (2) Cervical cancer screening: Comment: 08/07/2023 Pap shows positive HPV, Pap shows ASCUS needs colpo, to be scheduled with Dr. Burnett.; patient was not able to be reached in 2023, says she never got the message. ; Presents today 08/11/2024 for annual exam, Pap smear done plan made for patient to check in about these results for possible need for colposcopy. Records from [facility] (106 pages)-partially reviewed- patient had a LEEP with biopsy for ASC-H in February of 2016. Await the results of this Pap to make next plan...... Code(s): Z12.4 - Encounter for screening for malignant neoplasm of cervix Category: Medical (3) Breast cancer screening: Code(s): Z12.39 - Encounter for other screening for malignant neoplasm of breast Category: Medical (4) Encounter for screening examination for sexually transmitted disease: Code(s): Z11.3 - Encounter for screening for infections with a predominantly sexual mode of transmission Category: Medical (5) History of loop electrical excision procedure (LEEP): Code(s): Z98.890 - Other specified postprocedural states Category: Surgical (6) ASCUS with positive high risk HPV cervical: Comment: 08/19, did not come for colpo.... pap done 08/11/24 plan made w pt to review results when she calls next week... Code(s): R87.610 - Atypical squamous cells of undetermined significance on cytologic smear of cervix (ASC-US); R87.810 - Cervical high risk human papillomavirus (HPV) DNA test positive Category: Medical Plan Discussed that she will be getting yearly mammograms now that she is over 41. She is not due for this years yet. She had no concerns about STDs but accepted testing which I did as she may need been need a colposcopy depending on the Pap smear results. Discussed that she needed the colposcopy last year she does recall that she did have some abnormal finding when she was being seen at [facility] some years ago and they did some procedure and she remembered signing for records last year. I did find records today that arrived after our visit last year and were placed in the hospital system chart. There were 106 pages in the record I reviewed the 1st several and did find records of a colposcopy and records indicating the LEEP procedure in 2016. We will await the results of this Pap and we will discuss them next week I asked the patient to proactively called to discuss the plan so there is no chance of missing follow-up this year and I will so I had her double check her address and phone number which was all correct in the system..-----Discussed in this visit the following: healthy balanced diet, regular and consistent exercise, getting recommended health screens, doing the best she can for her particular health concerns, kegel exercises, pap smear screening and followup recommendations, mammography screening and SBE, normal changes in cycles in her life stage--- . Orders: Orders CT NG by PCR Today N89.8 - Other specified noninflammatory disorders of vagina, Z20.2 - Contact with and (suspected) exposure to infections with a predominantly sexual mode of transmission Bacterial Vaginosis Panel Today N89.8 - Other specified noninflammatory disorders of vagina Pap Smear Today Z00.00 - Encounter for general adult medical examination without abnormal findings Coding Level of Care Code Est Pt Prev Care 40-64y([id number]) Diagnoses Well woman exam with routine gynecological exam Z01.419 Cervical cancer screening Z12.4 Breast cancer screening Z12.39 Encounter for screening examination for sexually transmitted disease Z11.3 History of loop electrical excision procedure (LEEP) Z98.890 ASCUS with positive high risk HPV cervical R87.610; R87.810
[2024-08-11 15:19] VITALS: BP 126/78; BMI 33.7
--- OUTSIDE RECORDS SUMMARY | 2024-08-11 17:42 | XMS_ITS | Clinical Summary ---
Author Organization [address] Address [address] [place] [address] Phone Care Team Providers Care Green Pipefitter Name Role Phone Sandie Barrios MD Primary Care Provider [phone] Allergies No known active allergies Medications albuterol HFA (PROAIR HFA ; PROVENTIL HFA ; VENTOLIN HFA) 90 mcg/actuation inhaler Inhale 2 Puffs into the lungs every 6 hours as needed for Cough or Wheezing. Pt needs med f/u appt for further refills or 90 day supply 10/27/2020 Active ferrous sulfate 325 mg (65 mg iron) EC tablet Take 1 tablet (325 mg total) by mouth 3 (three) times a day with meals. Do not crush, chew, or split. 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 Asthma 01/02/2012 Depression 04/11/2011 Encounters Date Type Department Care Team Description 06/21/2024 7:15 AM EST - 06/21/2024 11:59 PM EST Hospital Encounter Radiology Department - [address] [phone] Abnormal findings on diagnostic imaging of gallbladder Discharge Disposition: Home or Self Care 05/17/2024 8:30 AM EST - 05/17/2024 11:59 PM EST Hospital Encounter Radiology Department - [address] [phone] Elevated lipase; Pancreatic abnormality Discharge Disposition: Home or Self Care from Last 3 Months Immunizations Name Administration Dates Next Due Hepatitis B (Fgndwrd-E-Ddfdz , Recombivax HB-Adult) 19yo and older 11/25/2018,06/24/2018,05/20/2018 Influenza Quadravalent, MDCK , 0.5ml, with preservative (Flucelvax) 6mo and older 01/21/2017 Influenza trivalent, with pr eservative (Fluzone; Afluria) 6mo and older 02/07/2020,04/03/2016,03/03/2014 PPD Test 02/14/2015,05/02/2011,04/11/2011 Pneumococcal polysaccharide 23 valent (Pneumovax 23) 2yo and older 04/09/2016 Tdap Tetanus diptheria acell ular pertussis (Boostrix; Adacel) 7yo and older 09/07/2015,04/11/2011 Surgical History Surgery Date Site/Laterality Comments TYMPANOSTOMY TUBE PLACEMENT PROCEDURE: HISTORICAL PE TUBES SECTION 10/03/2015 PROCEDURE: [place] DELIVERY ONLY Medical History Medical History Date Comments Depression DX:Depression Asthma DX:Asthma Family History Medical History Relation Name Comments No Known Problems Brother 1 half pater nal No Known Problems Brother 2 half pater nal No Known Problems Daughter 1 06/16/09: K liza; healthy No Known Problems Daughter 2 10/03/2015; Nicolette; healthy No Known Problems Father Colon cancer Maternal Grandfather Breast cancer Maternal Grandmother unknow n age Cataracts Maternal Grandmother No Known Problems Mother No Known Problems Paternal Grandfather No Known Problems Paternal Grandmother No Known Problems Sister 1 No Known Problems Sister 2 No Known Problems Sister 3 No Known Problems Sister 4 No Known Problems Son 1 11/22/97; N athaniel; healthy No Known Problems Son 2 03/09/04; Bridger; healthy Diabetes Neg Hx Heart attack Neg Hx Ovarian cancer Neg Hx Stroke Neg Hx Uterine cancer Neg Hx Relation Name Status Comments Brother 1 Alive Brother 2 Alive Daughter 1 Alive Daughter 2 Alive Father Alive Maternal Grandfather Maternal Grandmother Alive Mother Alive Paternal Grandfather Alive Paternal Grandmother Sister 1 Alive Sister 2 Alive Sister 3 Alive Sister 4 Alive Son 1 Alive Son 2 Alive Social History Tobacco Use Types Packs/Day Years Used Date Smoking Tobacco: Former Cigarettes Smokeless Tobacco: Never Tobacco Cessation:Counseling Given: Not Answered Alcohol Use Standard Drinks/Week Comments No 0 (1 standard drink = 0.6 oz pur e alcohol) Comments Unknown Sex and Gender Information Value Date Recorded Sex Assigned at Not on file Legal Sex Female 4:51 AM EST Gender Identity Not on file Sexual Orientation Not on file Obstetrics History Last Filed Vital Signs Vital Sign Reading Time Taken Comments Blood Pressure 115/60 04/05/2024 12:33 PM EST Pulse 81 04/05/2024 12:33 PM EST Temperature 36.6 ??C (97.9 ??F) 04/05/2024 12:[address] Respiratory Rate 16 04/05/2024 12:33 PM EST Oxygen Saturation - - Inhaled Oxygen Concentration - - Weight 87.6 kg (193 lb 3.2 oz) 04/05/2024 12:33 PM EST Height 160 cm (5' 3 ) 04/05/2024 12:33 PM EST Body Mass Index 34.22 04/05/2024 12:33 PM EST Plan of Treatment Upcoming Encounters Date Type Department Care Team (Late st Contact Info) Description 09/14/2024 3:20 PM EDT Consult Gastroenterology - [facility] [address] [phone] Norbert Decker MD [address] [address] 11/19/2024 9:30 AM EDT Office Visit Adult Medicine [address] [address] Sandie Barrios MD [address] [place] [phone] Health Maintenance Due Date Last Done Comments Breast Cancer Screening 1981 Pneumococcal Vaccine: Pediatrics (0 to 5 Years) and At-Risk Patients (6 to 64 Years) (2 of 2 - PCV) 04/09/2017 04/09/2016 Cervical Cancer Screening: Pap Smear 12/03/2018 12/04/2015, 12/04/2015 Depression Screening 03/31/2022 Social Influencers of Health Screening 03/31/2022 COVID-19 Vaccine ( season) 2023 05/09/2021, 07/26/2020, 05/13/2020 Influenza Vaccine (Season Ended) 2024 01/04/2021, 02/07/2020, 01/11/2019, Additional history exists DTaP,Tdap,and Td Vaccines (3 - Td or Tdap) 09/06/2025 09/07/2015, 04/11/2011 Hepatitis C Screening Completed 09/27/2011 HIV Screening Completed 03/08/2015 Hepatitis B Vaccines Completed 11/25/2018, 06/24/2018, 05/20/2018 HIB Vaccines Aged Out No longer eligi ble based on patient's age to complete this topic HPV Vaccines Aged Out No longer eligi ble based on patient's age to complete this topic Hepatitis A Vaccines Aged Out No long er eligible based on patient's age to complete this topic IPV Vaccines Aged Out No longer eligi ble based on patient's age to complete this topic MMR Vaccines Aged Out No longer eligi ble based on patient's age to complete this topic Meningococcal ACWY Vaccine Aged Out N o longer eligible based on patient's age to complete this topic Meningococcal B Vaccine Aged Out No l onger eligible based on patient's age to complete this topic RSV Immunization Patients Under 20 months Aged Out No longer eligible based on patient's age to complete this topic Varicella Vaccines Aged Out No longer eligible based on patient's age to complete this topic Procedures Procedure Name Priority Date/Time Associated Diagnosis Comments US ABDOMEN LIMITED Routine 06/21/2024 7: 42 AM EST Abnormal findings on diagnostic imaging of gallbladder MR ABDOMEN WO AND W CONTRAST Routine 05/17/2024 9:13 AM EST Elevated lipase Pancreatic abnormality HPV Routine 12/04/2015 HIV SCREENING Routine 03/08/2015 HEPATITIS C SCREENING Routine 09/27/2011 from Last 3 Months or Most Recently Relevant to Health Maintenance Results * US Abdomen Limited (06/21/2024 7:42 AM EST) Anatomical Region Laterality Modality Body Ultrasound 06/21/2024 9:25 AM EST Impressions 06/21/2024 9:38 AM EST Normal right upper quadrant ultrasound. Normal gallbladder. -------- FINAL REPORT -------- Dictated By: Shelia Guo Dictated Date: 06/21/2024 09:25 ET Assigned Physician: Shelia Guo Reviewed and Electronically Signed By: Shelia Guo Signed Date: 06/21/2024 09:38 ET Workstation ID: [id number] Transcribed By: Self Edit Transcribed Date: 06/21/2024 09:25 ET Narrative 06/21/2024 9:38 AM EST ABDOMINAL ULTRASOUND-LIMITED History: ??Contour abnormality of the gallbladder fundus. Comparison: MRI abdomen 05/17/2024 CT abdomen/pelvis 04/30/2024. FINDINGS: There is no evidence of cholelithiasis. The common bile duct is not dilated, measuring mm. ??The gallbladder wall is not thickened. No pericholecystic fluid is seen. No ascites are seen. The visualized pancreas is normal in size and demonstrates normal echotexture. The liver measures 15.3 cm in length and demonstrates normal echotexture. No focal lesions are seen in the liver and there is no evidence of intrahepatic ductal dilation. Normal hepatopedal flow is seen in the main portal vein. No evidence of hydronephrosis, mass, or calculus was seen in the right kidney. ??The right kidney measures 10.4 cm in greatest length. Procedure Note Shelia Guo MD - 06/21/2024 ABDOMINAL ULTRASOUND-LIMITED History: Contour abnormality of the gallbladder fundus. Comparison: MRI abdomen 05/17/2024 CT abdomen/pelvis 04/30/2024. FINDINGS: There is no evidence of cholelithiasis. The common bile duct isnot dilated, measuring mm. The gallbladder wall is not thickened. Nopericholecystic fluid is seen. No ascites are seen. The visualized pancreas is normal in size and demonstrates normalechotexture. The liver measures 15.3 cm in length and demonstrates normal echotexture.No focal lesions are seen in the liver and there is no evidence ofintrahepatic ductal dilation. Normal hepatopedal flow is seen in the mainportal vein. No evidence of hydronephrosis, mass, or calculus was seen in the rightkidney. The right kidney measures 10.4 cm in greatest length. IMPRESSION: Normal right upper quadrant ultrasound. Normal gallbladder. -------- FINAL REPORT -------- Dictated By: Shelia Guo Dictated Date: 06/21/2024 09:25 ET Assigned Physician: Shelia Guo Reviewed and Electronically Signed By: Shelia Guo Signed Date: 06/21/2024 09:38 ET Workstation ID: [id number] Transcribed By: Self Edit Transcribed Date: 06/21/2024 09:25 ET us Abida Raleigh KOEHLER IMG US PROCEDURES Final Result * MR Abdomen wo and w Contrast (05/17/2024 9:13 AM EST) Anatomical Region Laterality Modality Body Magnetic Resonan ce 05/17/2024 2:33 PM EST Impressions 05/17/2024 3:03 PM EST 1. ??No focal pancreatic lesions demonstrated on the current study. 2. ??Possible contour abnormality of the gallbladder fundus, which may represent a phrygian cap or adenomyomatosis. ??A limited ultrasound can be obtained for further evaluation. -------- FINAL REPORT -------- Dictated By: Maddie Stein Dictated Date: 05/17/2024 14:33 ET Assigned Physician: Maddie Stein Reviewed and Electronically Signed By: Maddie Stein Signed Date: 05/17/2024 15:03 ET Workstation ID: [id number] Transcribed By: Self Edit Transcribed Date: 05/17/2024 14:33 ET Narrative 05/17/2024 3:03 PM EST MR ABDOMEN WO AND W CONTRAST TECHNIQUE: Multiplanar MR imaging of the abdomen was obtained prior to and following intravenous administration of 15 cc of contrast gadolinium Dotarem. ??2-D and 3- D MRCP sequences were also obtained. COMPARISON: Abdomen/pelvis CT on April 30, 2024 describes Pancreas was visualized with somewhat bulky appearance and slightly heterogeneous attenuation of the head with tiny hypodense lesion measuring approximately 5 mm. ?? HISTORY: Elevated lipase. Bulky appearing pancreatic head with somewhat heterogeneous enhancement and tiny hypodense lesion FINDINGS: Motion degrades some sequences. Lower Chest: No effusions. Liver: Normal parenchymal signal. ??Tiny 0.1 cm T2 hyperintense lesion in the hepatic dome (601:40, 501:16) does not appear to enhance following administration of intravenous contrast, which favors cyst (1601:36). ??No enhancing focal lesions identified. Biliary: Gallbladder is not distended. ??Possible focal bulging of the contour at the level of the gallbladder fundus (601:18), not well evaluated on the current study. ??No biliary ductal dilatation. Spleen: No splenomegaly. ??No focal lesions. Pancreas: No focal lesion. ??No ductal dilatation. Adrenal Glands: No nodules. Kidneys/Ureters: No solid-appearing renal lesions or hydronephrosis. Bowel: No distention. Peritoneum/Retroperitoneum: No free fluid. Lymph Nodes: No lymphadenopathy. Vessels: No abnormality aortic aneurysm. Bones/Soft Tissues: Unremarkable. Procedure Note Maddie Stein MD - 05/17/2024 MR ABDOMEN WO AND W CONTRAST TECHNIQUE: Multiplanar MR imaging of the abdomen was obtained prior to andfollowing intravenous administration of 15 cc of contrast gadoliniumDotarem. 2-D and 3-D MRCP sequences were also obtained. COMPARISON: Abdomen/pelvis CT on April 30, 2024 describes Pancreas wasvisualized with somewhat bulky appearance and slightly heterogeneousattenuation of the head with tiny hypodense lesion measuring approximately5 mm. HISTORY: Elevated lipase. Bulky appearing pancreatic head with somewhatheterogeneous enhancement and tiny hypodense lesion FINDINGS: Motion degrades some sequences. Lower Chest: No effusions. Liver: Normal parenchymal signal. Tiny 0.1 cm T2 hyperintense lesion inthe hepatic dome (601:40, 501:16) does not appear to enhance followingadministration of intravenous contrast, which favors cyst (1601:36). Noenhancing focal lesions identified. Biliary: Gallbladder is not distended. Possible focal bulging of thecontour at the level of the gallbladder fundus (601:18), not wellevaluated on the current study. No biliary ductal dilatation. Spleen: No splenomegaly. No focal lesions. Pancreas: No focal lesion. No ductal dilatation. Adrenal Glands: No nodules. Kidneys/Ureters: No solid-appearing renal lesions or hydronephrosis. Bowel: No distention. Peritoneum/Retroperitoneum: No free fluid. Lymph Nodes: No lymphadenopathy. Vessels: No abnormality aortic aneurysm. Bones/Soft Tissues: Unremarkable. IMPRESSION: 1. No focal pancreatic lesions demonstrated on the current study. 2. Possible contour abnormality of the gallbladder fundus, which mayrepresent a phrygian cap or adenomyomatosis. A limited ultrasound can beobtained for further evaluation. -------- FINAL REPORT -------- Dictated By: Maddie Stein Dictated Date: 05/17/2024 14:33 ET Assigned Physician: Maddie Stein Reviewed and Electronically Signed By: Maddie Stein Signed Date: 05/17/2024 15:03 ET Workstation ID: [id number] Transcribed By: Self Edit Transcribed Date: 05/17/2024 14:33 ET Abida Raleigh KOEHLER IMG MRI PROCEDURES Final Result * Cervical Cancer Screening: HPV (12/04/2015) [facility] Cervical Cancer Screening: HPV abstracted, positive Result [facility] Historical Provider HEALTH MAINTENANCE Final Result * HIV Screening (03/08/2015) [facility] HIV Screening abstracted Historical Provider HEALTH MAINTENANCE Final Result * Hepatitis C Screening (09/27/2011) [facility] Hepatitis C Screening abstracted Historical Provider HEALTH MAINTENANCE Final Result from Last 3 Months or Most Recently Relevant to Health Maintenance Insurance [facility] Care Teams Green Pipefitter Relationship Specialty Start Date End Date Sandie Barrios MD [address] [place] [id number] PCP - General Internal Medicine 12/09/22
== END 2024-08-11 15:47 | disposition home or self-care (01) ==
LOC: HO.HWSM 15:02
PROVIDERS: Visit Provider Advanced Practice Midwife
DX: Z01.419 Encounter for gynecological examination (general) (routine) without abnormal findings (principal); R87.610 Atypical squamous cells of undetermined significance on cytologic smear of cervix (ASC-US); R87.810 Cervical high risk human papillomavirus (HPV) DNA test positive
CPT/HCPCS: 99396; 99459

== ENCOUNTER 2024-08-11 15:43 | Outpatient (REF) | payer OTHER, SELFPAY ==
--- OUTSIDE RECORDS SUMMARY | 2024-08-11 18:08 | XMS_ITS | Encounter Summary ---
Author Organization [facility] Address [address] [place] [address] Care Team Providers Care Guest Relations Agent Name Role Phone Krystal Ramesh MD Primary Care Provider Noel Torrez PA-C Primary Care Provider [phone] Sandie Barrios MD Primary Care Provider [phone] Encounter Details Date Type Department Care Team Description 04/05/2015 Orders Only OBGYN - [facility] [place] [address] [place] [address] Keyla Santacruz MD Social History Tobacco Use Types Packs/Day Years Used Date Smoking Tobacco: Every Day Cigarettes 0.5 Smokeless Tobacco: Never Alcohol Use Standard Drinks/Week Comments No 0 (1 standard drink = 0.6 oz pur e alcohol) soc Sex Assigned at Date Recorded Not on file documented as of this encounter Plan of Treatment Not on file documented as of this encounter Visit Diagnoses Not on filedocumented in this encounter Care Teams Guest Relations Agent Relationship Specialty Start Date End Date Krystal Ramesh MD PCP - General 01/18/10 09/07/20 Noel Robin PA-C [address] [place] [id number] PCP - General Internal Medicine 09/08/20 12/08/22 Sandie Barrios MD [address] [place] [phone] PCP - General Internal Medicine 12/09/22 documented as of this encounter
--- OUTSIDE RECORDS SUMMARY | 2024-08-11 18:08 | XMS_ITS | Encounter Summary ---
Author Organization [facility] Address [address] [place] [address] Care Team Providers Care Data Sme Name Role Phone Krystal Ramesh MD Primary Care Provider Noel Torrez PA-C Primary Care Provider [phone] Sandie Barrios MD Primary Care Provider [phone] Reason for Visit * Reason Comments E-prescribe Rx Request Encounter Details Date Type Department Care Team Description 10/13/2017 Refill Adult Medicine [address] [id number] Krystal Ramesh MD E-prescribe Rx Request Social History Tobacco Use Types Packs/Day Years Used Date Smoking Tobacco: Former Cigarettes 0.5 17 Smokeless Tobacco: Never Alcohol Use Standard Drinks/Week Comments No 0 (1 standard drink = 0.6 oz pur e alcohol) soc Sex Assigned at Date Recorded Not on file documented as of this encounter Miscellaneous Notes * Telephone Encounter - Carolina Lux - 10/13/2017 2:19 PM EDT Patient would like script to be: E-PRESCRIBED/FAXED TO PHARMACY WHEN WAS THE PATIENT'S LAST APPOINTMENT IN ADULT MEDICINE? [id number] WHEN WAS THE LAST TIME THE PATIENT SAW THEIR PCP? [phone] Does patient have an upcoming appointment? No-unable to reach left voicemaill to call for appointment due to refill request. Appt due (THE MEDICATION REQUESTED IS ON THE MED LIST ABOVE) All of the medications requested were on the CURRENT MEDS list Did you check the Pharmacy information above?: YES Patient wants: 30 -day supply Is this a mail order prescription request ? NO Patients current insurance carrier is: Payor: [employer] POS / Plan: PPO $30 [id number] [id number] / ProductType: PPO [id number] documented in this encounter Plan of Treatment Not on file documented as of this encounter Visit Diagnoses Not on filedocumented in this encounter Care Teams Data Sme Relationship Specialty Start Date End Date Krystal Ramesh MD PCP - General 01/18/10 09/07/20 Noel Robin PA-C [address] [place] [id number] PCP - General Internal Medicine 09/08/20 12/08/22 Sandie Barrios MD [address] [place] [id number] PCP - General Internal Medicine 12/09/22 documented as of this encounter
--- OUTSIDE RECORDS SUMMARY | 2024-08-11 18:08 | XMS_ITS | Encounter Summary ---
Author Organization [facility] Address [address] [place] [address] Care Team Providers Care Independent Contractor Name Role Phone Krystal Ramesh MD Primary Care Provider Noel Torrez PA-C Primary Care Provider [phone] Sandie Barrios MD Primary Care Provider [phone] Encounter Details Date Type Department Care Team Description 07/03/2016 Orders Only Adult Medicine [address] [id number] Vikki Aguiar PA-C [address] [place], [place] [phone] Flatulence, eructation, and gas pain (Primary Dx) Social History Tobacco Use Types Packs/Day Years Used Date Smoking Tobacco: Former Cigarettes 0.5 17 Smokeless Tobacco: Never Alcohol Use Standard Drinks/Week Comments No 0 (1 standard drink = 0.6 oz pur e alcohol) soc Sex Assigned at Date Recorded Not on file documented as of this encounter Plan of Treatment Not on file documented as of this encounter Results * H PYLORI ANTIGEN (FOR STOOL) (08/01/2016 12:22 PM EDT) H. PYLORI ANTIGEN STOOL Negative Negative 08/02/2016 6:08 PM EDT [facility] Comment: Performed at: ??RN - [facility] [address] ??[id number] Labor Expediter: Angle Landeros MD, Phone: ??[phone] 08/01/2016 12:2 2 PM EDT 08/01/2016 12:23 PM EDT Vikki Aguiar PA-C [facility] [employer] documented in this encounter Visit Diagnoses Diagnosis Flatulence, eructation, and gas pain- Primary documented in this encounter Care Teams Independent Contractor Relationship Specialty Start Date End Date Krystal Ramesh MD PCP - General 01/18/10 09/07/20 Noel Robin PA-C [address] [place] [address] PCP - General Internal Medicine 09/08/20 12/08/22 Sandie Barrios MD [address] [place] [address] PCP - General Internal Medicine 12/09/22 documented as of this encounter
--- OUTSIDE RECORDS SUMMARY | 2024-08-11 18:08 | XMS_ITS | Encounter Summary ---
Author Organization [facility] Address [address] [place] [address] Care Team Providers Care Performance Improvement Analyst Name Role Phone Krystal Ramesh MD Primary Care Provider Noel Torrez PA-C Primary Care Provider [phone] Sandie Barrios MD Primary Care Provider [phone] Reason for Visit * Reason Onset Date Comments immunizations 11/25/2016 Encounter Details Date Type Department Care Team Description 11/25/2016 Telephone Adult Medicine [address] [address] Krystal Ramesh MD immunizations Social History Tobacco Use Types Packs/Day Years Used Date Smoking Tobacco: Former Cigarettes 0.5 17 Smokeless Tobacco: Never Alcohol Use Standard Drinks/Week Comments No 0 (1 standard drink = 0.6 oz pur e alcohol) soc Sex Assigned at Date Recorded Not on file documented as of this encounter Miscellaneous Notes * Telephone Encounter - Mima Argueta L.P.N. - 11/25/2016 4:24 PM EDT Please call pt and schedule ppd on nurse only * Telephone Encounter - Krystal Ramesh MD - 11/25/2016 2:02 PM EDT Order placed * Telephone Encounter - Ngozi Song - 11/25/2016 11:58 AM EDT Payor: [employer] MEDICAID / Plan: [facility] MEDICAID HMO $0 LAURA / Product Type: HMO [id number] Patient will like a call back when order is placed with appointment time and date. Patient is requesting a list of their previous immunizations YES Does the patient have an immunization form to be completed? NO Is the patient requesting immunizations to be administered? YES If yes, which immunizations are needed? testing for tuberculosis Is the patient traveling to a foreign country: NO If traveling: Which country: Date patient is leaving: documented in this encounter Plan of Treatment Scheduled Orders Name Type Priority Associated Diagnoses Orde r Schedule TB INTRADERMAL TEST Lab Routine Screening examination for pulmonary tuberculosis 1 Occurrences starting 11/25/2016 until 05/24/2017 documented as of this encounter Visit Diagnoses Diagnosis Screening examination for pulmonary tuberculosis- Primary documented in this encounter Care Teams Performance Improvement Analyst Relationship Specialty Start Date End Date Krystal Ramesh MD PCP - General 01/18/10 09/07/20 Noel Robin PA-C [address] [place] [address] PCP - General Internal Medicine 09/08/20 12/08/22 Sandie Barrios MD [address] [place] [address] PCP - General Internal Medicine 12/09/22 documented as of this encounter
--- OUTSIDE RECORDS SUMMARY | 2024-08-11 18:08 | XMS_ITS | Encounter Summary ---
Author Organization [facility] Address [address] [place] [address] Care Team Providers Care Office Support Specialist Name Role Phone Krystal Ramesh MD Primary Care Provider Noel Torrez PA-C Primary Care Provider [phone] Sandie Barrios MD Primary Care Provider [phone] Encounter Details Date Type Department Care Team Description 03/10/2014 DOT Physical Forms Medical Records [address] [place] [address] Abstract, Provider Social History Tobacco Use Types Packs/Day Years Used Date Smoking Tobacco: Every Day Cigarettes 0.5 Smokeless Tobacco: Never Alcohol Use Standard Drinks/Week Comments Yes 0 (1 standard drink = 0.6 oz pur e alcohol) soc Sex Assigned at Date Recorded Not on file documented as of this encounter Plan of Treatment Not on file documented as of this encounter Visit Diagnoses Not on filedocumented in this encounter Care Teams Office Support Specialist Relationship Specialty Start Date End Date Krystal Ramesh MD PCP - General 01/18/10 09/07/20 Noel Robin PA-C [address] [place] [address] PCP - General Internal Medicine 09/08/20 12/08/22 Sandie Barrios MD [address] [place] [address] PCP - General Internal Medicine 12/09/22 documented as of this encounter
--- OUTSIDE RECORDS SUMMARY | 2024-08-11 18:09 | XMS_ITS | Encounter Summary ---
Author Organization [facility] Address [address] [place] [address] Care Team Providers Care Field Appraiser Name Role Phone Krystal Ramesh MD Primary Care Provider Noel Torrez PA-C Primary Care Provider [phone] Sandie Barrios MD Primary Care Provider [phone] Reason for Visit * Reason Comments E-prescribe Rx Request Encounter Details Date Type Department Care Team Description 03/25/2016 Refill Adult Medicine [address] [address] Krystal Ramesh MD E-prescribe Rx Request Social [...] Telephone Encounter - Krystal Ramesh MD - 03/25/2016 5:02 PM EST Done in another encounter * Telephone Encounter - Jennifer Vuong - 03/25/2016 12:05 PM EST Patient would like script to be: E-PRESCRIBED/FAXED TO PHARMACY WHEN WAS THE PATIENT'S LAST APPOINTMENT IN ADULT MEDICINE? 06/06/2015 WHEN WAS THE LAST TIME THE PATIENT SAW THEIR PCP? 03/03/2014 Does patient have an upcoming appointment? 04/09/2016 (THE MEDICATION REQUESTED IS ON THE MED LIST ABOVE) All of the medications requested were on the CURRENT MEDS list Did you check the Pharmacy information above?: YES Patient wants: 30 -day supply Is this a mail order prescription request ? NO Patients current insurance carrier is: Payor: [facility] MEDICAID / Plan: [facility] MEDICAID O $0 [place] / Product Type: HMO [id number] documented in this encounter Plan of Treatment Not on file documented as of this encounter Visit Diagnoses Not on filedocumented in this encounter Care Teams Field Appraiser Relationship Specialty Start Date End Date Krystal Ramesh MD PCP - General 01/18/10 09/07/20 Noel Robin PA-C [address] [place] [address] PCP - General Internal Medicine 09/08/20 12/08/22 Sandie Barrios MD [address] [place] [address] PCP - General Internal Medicine 12/09/22 documented as of this encounter
--- OUTSIDE RECORDS SUMMARY | 2024-08-11 18:09 | XMS_ITS | Encounter Summary ---
Author Organization [facility] Address [address] [place] [address] Care Team Providers Care Reporting Analyst Name Role Phone Krystal Ramesh MD Primary Care Provider Noel Torrez PA-C Primary Care Provider [phone] Sandie Barrios MD Primary Care Provider [phone] Reason for Visit * Reason Comments E-prescribe Rx Request Encounter Details Date Type Department Care Team Description 08/01/2020 Refill Adult Medicine [address] [id number] Elliott Braxton MD [address] [place] [address] [phone] E-prescribe Rx Request Social History Tobacco Use Types Packs/Day Years Used Date Smoking Tobacco: Former Cigarettes 0.5 17 Smokeless Tobacco: Never Alcohol Use Standard Drinks/Week Comments No 0 (1 standard drink = 0.6 oz pur e alcohol) soc Sex Assigned at Date Recorded Not on file documented as of this encounter Miscellaneous Notes * Telephone Encounter - Martita Kei - 08/02/2020 2:54 PM EDT Patient would like script to be: E-PRESCRIBED/FAXED TO PHARMACY WHEN WAS THE PATIENT'S LAST APPOINTMENT IN ADULT MEDICINE? 10/07/2019 WHEN WAS THE LAST TIME THE PATIENT SAW THEIR PCP? Same as above Does patient have an upcoming appointment? Yes 08/02/2020 (THE MEDICATION REQUESTED IS ON THE MED LIST ABOVE) All of the medications requested were on the CURRENT MEDS list Did you check the Pharmacy information above?: YES Patient wants: please see sig Is this a mail order prescription request ? NO If the refill is from a FAXED refill request what is the RX # listed on the fax? N/A Patients current insurance carrier is: Payor: [facility] MEDICAID / Plan: [facility] MED[place] HMO $0 [place] / Product Type: HMO [id number] documented in this encounter Plan of Treatment Not on file documented as of this encounter Visit Diagnoses Not on filedocumented in this encounter Care Teams Reporting Analyst Relationship Specialty Start Date End Date Krystal Ramesh MD PCP - General 01/18/10 09/07/20 Noel Roibn PA-C [address] [place] [address] PCP - General Internal Medicine 09/08/20 12/08/22 Sandie Barrios MD [address] [place] [address] PCP - General Internal Medicine 12/09/22 documented as of this encounter
--- OUTSIDE RECORDS SUMMARY | 2024-08-11 18:09 | XMS_ITS | Encounter Summary ---
Author Organization [facility] Address [address] [place] [address] Care Team Providers Care Pastry Decorator Name Role Phone Noel Robin PA-C Primary Care Provider [phone] Sandie Barrios MD Primary Care Provider [phone] Encounter Details Date Type Department Care Team Description 10/27/2020 Refill Adult Medicine [address] [address] Noel Robin PA-C [address] [place] [address] Social History Tobacco Use Types Packs/Day Years [...] on filedocumented in this encounter Care Teams Pastry Decorator Relationship Specialty Start Date End Date Noel Robin PA-C [address] [place] [address] PCP - General Internal Medicine 09/08/20 12/08/22 Sandie Barrios MD [address] [place] [address] PCP - General Internal Medicine 12/09/22 documented as of this encounter
--- OUTSIDE RECORDS SUMMARY | 2024-08-11 18:09 | XMS_ITS | Encounter Summary ---
Author Organization [facility] Address [address] [place] [address] Care Team Providers Care Documentation Writer Name Role Phone Krystal Ramesh MD Primary Care Provider Noel Torrez PA-C Primary Care Provider [phone] Sandie Barrios MD Primary Care Provider [phone] Encounter Details Date Type Department Care Team Description 10/03/2015 Hospital Medical Records [address] [place] [id number] [place] [address] Social History Tobacco Use Types Packs/Day Years [...] on filedocumented in this encounter Care Teams Documentation Writer Relationship Specialty Start Date End Date Krystal Ramesh MD PCP - General 01/18/10 09/07/20 Noel Robin PA-C [address] [place] [address] PCP - General Internal Medicine 09/08/20 12/08/22 Sandie Barrios MD [address] [place] [address] PCP - General Internal Medicine 12/09/22 documented as of this encounter
--- OUTSIDE RECORDS SUMMARY | 2024-08-11 18:09 | XMS_ITS | Encounter Summary ---
Author Organization [facility] Address [address] [place] [address] Care Team Providers Care Metal Bumper Name Role Phone Noel Robin PA-C Primary Care Provider [phone] Sandie Barrios MD Primary Care Provider Reason for Visit * Reason Onset Date Comments refill request 01/04/2021 Encounter Details Date Type Department Care Team Description 01/04/2021 Refill Respiratory and Diabetes Medicaid/ACO Pharmacist [address] [place] [address] Charisse Amaya PA [address] [place] [address] [phone] refill request Social History Tobacco Use Types Packs/Day Years Used Date Smoking Tobacco: Former Cigarettes 0.5 17 Smokeless Tobacco: Never Alcohol Use Standard Drinks/Week Comments No 0 (1 standard drink = 0.6 oz pur e alcohol) soc Sex Assigned at Date Recorded Not on file documented as of this encounter Miscellaneous Notes * Telephone Encounter - Mode Ramos - 01/04/2021 11:48 AM EDT Telephone Information: Number has been disconnected. * Telephone Encounter - RODO Peacock - 01/04/2021 11:40 AM EDT Insurance no longer covering tablets. Requesting capsules instead. This is sent to pharmacy. Pleaseadvise patient. * Telephone Encounter - Pharm. BaudilioD - 01/04/2021 10:30 AM EDT Per patients insurance, they are no longer covering tablets of fluoxetine. Please consider changingto capsules. Thank you, Terra Berger PharmD., [facility] Clinical Pharmacist [facility] [email or web address] Office: Wednesdays [phone], Fridays [phone], (other days) documented in this encounter Plan of Treatment Not on file documented as of this encounter Visit Diagnoses Not on filedocumented in this encounter Care Teams Metal Bumper Relationship Specialty Start Date End Date Noel Robin PA-C [address] [place] [address] PCP - General Internal Medicine 09/08/20 12/08/22 Sandie Barrios MD [address] [place] [address] PCP - General Internal Medicine 12/09/22 documented as of this encounter
[2024-08-13 13:58] LABS: CT PCR NOT DETECTED (Not Detect.); NG PCR NOT DETECTED (Not Detect.)
[2024-08-13 16:55] LABS: Bacterial Vaginosis PCR POSITIVE (Negative); Candida Group PCR NOT DETECTED (Not Detect); Candida glab krusei PCR NOT DETECTED (Not Detect); Trichomonas vaginalis PCR NOT DETECTED (Not Detect)
[2024-08-19 14:02] LABS: HPV Genotype 16 Negative (Negative); HPV Genotype 18 Negative (Negative); HPV High Risk Negative (Negative)
== END 2024-08-11 15:44 | disposition home or self-care (01) ==
LOC: HO.LNP 15:43
PROVIDERS: Visit Provider Advanced Practice Midwife
DX: Z13.89 Encounter for screening for other disorder (principal)
CPT/HCPCS: 81515; 87491; 87591; 87626; 88175

== ENCOUNTER 2024-10-28 15:32 | Outpatient (REF) | payer OTHER, SELFPAY | END 2024-10-28 15:33 | disposition home or self-care (01) | LOC: HO.LNP 15:32 | PROVIDERS: Visit Provider Obstetrics & Gynecology | DX: R87.610 Atypical squamous cells of undetermined significance on cytologic smear of cervix (ASC-US) (principal); R87.810 Cervical high risk human papillomavirus (HPV) DNA test positive | CPT/HCPCS: 57454; 88305 ==

== ENCOUNTER 2024-10-28 15:32 | Outpatient (AMB) | payer OTHER, SELFPAY ==
--- OUTSIDE RECORDS SUMMARY | 2024-10-28 15:34 | XMS_ITS | Clinical Summary ---
Author Organization [facility] [address] [place] [address] [place] [phone] Phone Care Team Providers Care Math Specialist Name Role Phone Sandie Barrios MD Primary Care Provider [phone] Allergies No known active allergies Medications albuterol [...] chew, or split. 90 each 5 04/06/2024 5 Active metroNIDAZOLE (FLAGYL) 500 mg tablet TAKE 1 TABLET BY MOUTH TWICE A DAY FOR 7 DAYS WITH FOOD 09/30/2024 Active dicyclomine (BENTYL) 10 mg capsuleIndicati ons:Periumbilic al abdominal pain Take 1 capsule (10 mg total) by mouth 4 (four) times a day (before meals and nightly). 120 each 11 10/08/2024 6 Active Active Problems Problem Noted Date Diagnosed Date Iron deficiency 02/11/2019 Anxiety and depression 02/10/2019 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 Asthma 01/02/2012 Depression 04/11/2011 Encounters Date Type Department Care Team Description 10/08/2024 2:10 PM EDT - 10/08/2024 11:59 PM EDT Hospital Encounter [facility] Xray [address] [place] [phone] Periumbilical abdominal pain Discharge Disposition: Home or Self Care 10/08/2024 1:30 PM EDT Consult Gastroenterology - [address] [facility] [address] [facility] [address] [place] [phone] Valery Singleton, MICROGRINDER OPERATOR Periumbilical abdominal pain (Primary Dx); Abnormal serum lipase level from Last 3 Months Immunizations Name Administration Dates Next Due Hepatitis B (Peibieh-Y-Pnwfc , Recombivax HB-Adult) 19yo and older 11/25/2018,06/24/2018,05/20/2018 [...] PROCEDURE: HISTORICAL PE TUBES SECTION 10/03/2015 PROCEDURE: DC DELIVERY ONLY Medical History Medical History Date Comments Depression DX:Depression Asthma DX:Asthma Family History Medical History Relation Name Comments No Known Problems Brother 1 half pater nal No Known Problems Brother 2 half pater nal No Known Problems Daughter 1 06/16/09: K aylee; healthy No Known Problems Daughter 2 10/03/2015; Will; healthy No Known Problems Father Colon cancer [...] 81 04/05/2024 12:33 PM EST Temperature 36.6 C (97.9 F) 04/05/2024 12:33 PM EST Respiratory Rate 16 04/05/2024 12:33 PM EST Oxygen Saturation - - Inhaled Oxygen Concentration - - Weight 88.9 kg (196 lb) 10/08/2024 1:36 PM EDT Height 160 cm (5' 3 ) 10/08/2024 1:36 PM EDT Body Mass Index 34.72 10/08/2024 1:36 PM EDT Plan of Treatment Upcoming Encounters Date Type Department Care Team (Late st Contact Info) Description 11/19/2024 9:30 AM EDT Office Visit Adult Medicine [address] [phone] Sandie Barrios MD [address] [place] [id number] Health Maintenance Due Date Last Done Comments [...] Procedure Name Priority Date/Time Associated Diagnosis Comments XR ABDOMEN 1 VIEW Routine 10/08/2024 2:1 8 PM EDT Periumbilical abdominal pain CBC WITH AUTO DIFFERENTIAL Routine 10/08/2024 2:02 PM EDT Periumbilical abdominal pain FERRITIN Routine 10/08/2024 2:02 PM EDT Abdominal pain, periumbilical LIPASE Routine 10/08/2024 2:02 PM EDT Abdominal pain, periumbilical AMYLASE Routine 10/08/2024 2:02 PM EDT Abdominal pain, periumbilical COMPREHENSIVE METABOLIC PANEL Routine 10/08/2024 2:02 PM EDT Periumbilical abdominal pain CBC AND DIFFERENTIAL Routine 10/08/2024 2:02 PM EDT Periumbilical abdominal pain HEMOGLOBIN A1C Routine 10/08/2024 2:02 PM EDT Elevated glucose IRON AND TIBC Routine 10/08/2024 2:02 PM EDT Iron deficiency anemia due to chronic blood loss HM HPV Routine 12/04/2015 HM HIV SCREENING Routine 03/08/2015 HM HEPATITIS C SCREENING Routine 09/27/2011 from Last 3 Months or Most Recently Relevant to Health Maintenance Results * XR Abdomen 1 View (10/08/2024 2:18 PM EDT) Anatomical Region Laterality Modality Body Radiographic Sissy ging 10/11/2024 5:36 PM EDT Impressions 10/11/2024 5:37 PM EDT Impression: No significant abnormality identified. Telerad RODO ([id number]) -------- FINAL REPORT -------- Dictated By: Concepcion Warren Dictated Date: 10/11/2024 17:36 ET Assigned Physician: Concepcion Warren Reviewed and Electronically Signed By: Concepcion Warren Signed Date: 10/11/2024 17:37 ET Workstation ID: [id number] Transcribed By: Self Edit Transcribed Date: 10/11/2024 17:36 ET Narrative 10/11/2024 5:37 PM EDT History: Abdominal pain and distention. Findings: AP supine views of the abdomen and pelvis. No bowel dilatation is seen. Formed fecal material within the colon does not appear to be excessive. Solid visceral outlines are unremarkable. Several smooth round calcifications within the true pelvis suggest phleboliths. The regional skeleton is intact. Procedure Note Concepcion Warren MD - 10/11/2024 History: Abdominal pain and distention. Findings: AP supine views of the abdomen and pelvis. No bowel dilatation is seen.Formed fecal material within the colon does not appear to be excessive.Solid visceral outlines are unremarkable. Several smooth round calcifications within the true pelvis suggestphleboliths. The regional skeleton is intact. IMPRESSION: Impression: No significant abnormality identified. Telerad RODO ([id number]) -------- FINAL REPORT -------- Dictated By: Concepcion Warren Dictated Date: 10/11/2024 17:36 ET Assigned Physician: Concepcion Warren Reviewed and Electronically Signed By: Concepcion Warren Signed Date: 10/11/2024 17:37 ET Workstation ID: [id number] Transcribed By: Self Edit Transcribed Date: 10/11/2024 17:36 ET us Valery Singleton NP IMG XR PROCEDURES Final Resul t * (ABNORMAL) CBC auto differential (10/08/2024 2:02 PM EDT) WBC 10.0 4.8 - 10.8 K/mcL LAB [facility] RBC 4.70 3.80 - 4.80 M/mcL LAB HEMETOLOGY METHOD [facility]24 [facility] Hemoglobin 10.0(L) 11.5 - 16.0 g/dL LAB HEMETOLOGY METHOD [facility]2024 [facility] Hematocrit 34.5(L) 35.0 - 47.0 % LAB HEMETOLOGY METHOD 10/08[facility]2024 [facility] MCV 72.8(L) 79.0 - 98.0 FL LAB HEMETOLOGY METHOD 10/08/2024 4:02 PM [facility] MCH 21.1(L) 27.0 - 32.0 pcg LAB HEMETOLOGY METHOD 10/08/2024 4:[facility] MCHC 29.0(L) 32.0 - 37.0 g/dL LAB HEMETOLOGY METHOD 10/08/2024 4:02 PM [facility] RDW 17.5(H) 11.0 - 15.0 % LAB HEMETOLOGY METHOD 10/08/2024 4:02 PM [facility] Platelets 340 130 - 400 K/mcL LAB HEMETOLOGY METHOD 10/08/2024 4:02 PM [facility] MPV 10.6 7.0 - 11.0 FL LAB HEMETOLOGY METHOD 10/08/2024 4:02 PM [facility] NRBC 0.0 <1.0 % LAB HEMETOLOGY METHOD 10/08/2024 4:02 PM [facility] NRBC Absolute 0.00 <0.10 K/mcL LAB HEMETOLOGY METHOD 10/08/2024 4:02 PM [facility] Neutrophils Relative 66.6 % LAB HEMETOLOGY METHOD 10/08/2024 4:02 PM [facility] Lymphocytes Relative 22.2 % LAB HEMETOLOGY METHOD 10/08/2024 4:02 PM [facility] Monocytes Relative 8.8 % LAB HEMETOLOGY METHOD 10/08/2024 4:02 PM [facility] Eosinophils Relative 1.6 % LAB HEMETOLOGY METHOD 10/08/2024 4:02 PM [facility] Basophils Relative 0.4 % LAB HEMETOLOGY METHOD 10/08/2024 4:02 PM [facility] Immature Granulocytes Relative 0.4 % LAB HEMETOLOGY METHOD 10/08/2024 4:02 PM [facility] Neutrophils Absolute 6.62 1.50 - 7.00 K/mcL LAB HEMETOLOGY METHOD 10/08/2024 4:02 PM EDT [facility] Lymphocytes Absolute 2.21 1.00 - 5.00 K/mcL LAB HEMETOLOGY METHOD 10/08/2024 4:02 PM EDT [facility] Monocytes Absolute 0.88 0.20 - 1.00 K/mcL LAB HEMETOLOGY METHOD 10/08/2024 4:02 PM EDT [facility] Eosinophils Absolute 0.16 0.00 - 0.50 K/[facility] LAB HEMETOLOGY METHOD 10/08/2024 4:02 PM EDT [facility] Basophils Absolute 0.04 0.00 - 0.20 K/mcL LAB HEMETOLOGY METHOD 10/08/2024 4:02 PM EDT [facility] Immature Granulocytes Absolute 0.04(H) 0.00 - 0.03 K/[facility] LAB HEMETOLOGY METHOD 10/08/2024 4:02 PM EDT [facility] Blood Venous blood specimen / Unknown Venipuncture / Unknown 10/08/2024 2:02 PM EDT 10/08/2024 3:48 PM EDT us Valery Singleton MICROGRINDER OPERATOR LAB BLOOD ORDERABLES Final Re sult [facility] [address] [place] [address], * (ABNORMAL) Iron and TIBC (10/08/2024 2:02 PM EDT) Iron 23(L) 40 - 150 mcg/dL LAB CHEMISTRY METHOD 10/08/2024 4:38 PM EDT [facility] TIBC 486(H) 250 - 450 mcg/dL LAB CHEMISTRY METHOD 10/08/2024 4:38 PM EDT [facility] Iron Saturation 5(L) 15 - 50 % LAB CHEMISTRY METHOD 10/08/2024 4:38 PM EDT [facility] Blood Venous blood specimen / Unknown Venipuncture / Unknown 10/08/2024 2:02 PM EDT 10/08/2024 3:48 PM EDT us Abida Storey PA LAB BLOOD ORDERABLES Final Resul t Performing Organization Address City/[facility]/ZIP Co de Phone Number [facility] [address] [place] [address], [place] [phone] * Lipase (10/08/2024 2:02 PM EDT) Lipase 41 13 - 75 unit/L LAB CHEMISTRY METHOD 10/08/2024 5:04 PM EDT [facility] Comment:Results verified by repeat testing Blood Venous blood specimen / Unknown Venipuncture / Unknown 10/08/2024 2:02 PM EDT 10/08/2024 3:48 PM EDT Valery Singleton NP LAB BLOOD ORDERABLES Final Re sult Performing Organization Address [facility] de Phone Number [facility] [address] [place] [address], [place] [phone] * Hemoglobin A1c (10/08/2024 2:02 PM EDT) Pathologist [facility] Hemoglobin A1C 5.3 <6.5 % LAB CHEMISTRY METHOD 10/08/2024 8:32 PM EDT [facility] Mean Bld Glu Estim. 105 mg/dL LAB CHEMISTRY METHOD 10/08/2024 8:32 PM EDT [facility] Blood Venous blood specimen / Unknown Venipuncture / Unknown 10/08/2024 2:02 PM EDT 10/08/2024 3:48 PM EDT us Abida Storey PA LAB BLOOD ORDERABLES Final Resul t Performing Organization Address [facility]/ZIP Co de Phone Number [facility] [address] [place] [address], [place] [phone] * (ABNORMAL) Ferritin (10/08/2024 2:02 PM EDT) Pathologist [facility] Ferritin 2(L) 8 - 252 ng/mL LAB CHEMISTRY METHOD 10/08/2024 5:04 PM EDT [facility] Comment:Results verified by repeat testing Blood Venous blood specimen / Unknown Venipuncture / Unknown 10/08/2024 2:02 PM EDT 10/08/2024 3:48 PM EDT us Abida Storey PA LAB BLOOD ORDERABLES Final Resul t [facility] [address] [place] [address], [place] [phone] * Amylase (10/08/2024 2:02 PM EDT) [facility] Amylase 73 25 - 115 unit/L LAB CHEMISTRY METHOD 10/08/2024 4:38 PM EDT [facility] Blood Venous blood specimen / Unknown Venipuncture / Unknown 10/08/2024 2:02 PM EDT 10/08/2024 3:48 PM EDT us Valery Singleton MICROGRINDER OPERATOR LAB BLOOD ORDERABLES Final Re sult Performing Organization Address [facility]/ZIP Co de Phone Number [facility] [address] [place] [address], [place] [phone] * (ABNORMAL) Comprehensive metabolic panel (10/08/2024 2:02 PM EDT) [facility] Sodium 139 133 - 145 mmol/L LAB CHEMISTRY METHOD 10/08/2024 4:39 PM EDT [facility] Potassium 3.8 3.5 - 5.5 mmol/L LAB CHEMISTRY METHOD 10/08/2024 4:39 PM EDT [facility] Chloride 105 96 - 110 mmol/L LAB CHEMISTRY METHOD 10/08/2024 4:39 PM [facility] CO2 26 21 - 32 mmol/L LAB CHEMISTRY METHOD 10/08/2024 4:39 PM [facility] Anion Gap 8 3 - 11 LAB CHEMISTRY METHOD 10/08/2024 4:39 PM [facility] Glucose 89 70 - 100 mg/dL LAB CHEMISTRY METHOD 10/08/2024 4:39 PM [facility] BUN 12 5 - 25 mg/dL LAB CHEMISTRY METHOD 10/08/2024 4:39 PM [facility] Creatinine 0.88 0.50 - 1.10 mg/dL LAB CHEMISTRY METHOD 10/08/2024 4:39 PM [facility] eGFR 84 >=60 mL/min/1. 73m2 LAB CHEMISTRY METHOD 10/08/2024 4:39 PM [facility] Comment:Calculation based on the Chronic Kidney Disease Epidemiology Collaboration (CKD-EPI) equation refit without adjustment for race. BUN/Creatinine Ratio 13.6 LAB CHEMISTRY METHOD 10/08/2024 4:39 PM [facility] Calcium 8.3(L) 8.5 - 10.5 mg/dL LAB CHEMISTRY METHOD 10/08/2024 4:39 PM [facility] AST (SGOT) 10 10 - 42 unit/L LAB CHEMISTRY METHOD 10/08/2024 4:39 PM [facility] ALT (SGPT) 17 10 - 60 unit/L LAB CHEMISTRY METHOD 10/08/2024 4:39 PM [facility] Alkaline Phosphatase 92 42 - 121 unit/L LAB CHEMISTRY METHOD 10/08/2024 4:39 PM [facility] Total Protein 6.7 6.0 - 8.0 g/dL LAB CHEMISTRY METHOD 10/08/2024 4:39 PM [facility] Albumin 3.4 3.2 - 5.0 g/dL LAB CHEMISTRY METHOD 10/08/2024 4:39 PM EDT [facility] Total Bilirubin 0.4 0.0 - 1.4 mg/dL LAB CHEMISTRY METHOD 10/08/2024 4:39 PM EDT [facility] Blood Venous blood specimen / Unknown Venipuncture / Unknown 10/08/2024 2:02 PM EDT 10/08/2024 3:48 PM EDT us Valery Singleton MICROGRINDER OPERATOR LAB BLOOD ORDERABLES Final Re sult [facility] [address] [place] [address], [place] [phone] * Cervical Cancer Screening: HPV (12/04/2015) Pathologist [facility] Cervical Cancer Screening: HPV abstracted, positive Historical Provider HEALTH MAINTENANCE Final Result * HIV Screening (03/08/2015) [facility] HIV Screening abstracted Historical Provider HEALTH MAINTENANCE Final Result * Hepatitis C Screening (09/27/2011) Pathologist [facility] Hepatitis C Screening abstracted Historical Provider HEALTH MAINTENANCE Final Result from Last 3 Months or Most Recently Relevant to Health Maintenance Insurance [facility] Care Teams Math Specialist Relationship Specialty Start Date End Date Denis, Sandie, MD [address] [place] [phone] PCP - General Internal Medicine 12/09/22
--- NOTE | 2024-10-28 15:40 | A.OFFVIS_ITS ---
Intake Visit Reasons: Colposcopy Publication Designer: Publication Designer Present (Petrona) Accompanied by: Self / Same As Patient Allergies No Known Allergies Allergy (Verified 10/28/24 15:40) HPI Comments Details: Presenting referred from Marissa Rodriguez CNM regarding ascus/HPV positive done in 08/19. Repeat co testing in 08/20 was negative. The patient gives a history of abnormal Pap smears in the past 02/2017 high-grade HEIKE followed by colpo biopsy ECC showed FLETCHER 2-3, status post LEEP cone with post cone ECC pathology shows FLETCHER 1 02/13 co testing was negative 08/19 ascus HPV positive, no colposcopy done 08/20 co testing negative PFSH Medical History FLETCHER III (cervical intraepithelial neoplasia grade III) with severe dysplasia Depression Anxiety Asthma Surgical History History of bilateral tubal ligation S/P Family History Maternal Grandmother Breast cancer Maternal Grandfather Colon cancer Social History Household Members: Children Household Members Other:: 2 daughters Current occupational status: employed 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 We thoroughly discussed the procedure itself, including its details, alternatives, and all associated risks. This included but not limited to the following complications such as bleeding, infection, and injury to the vagina, bladder, and vessels, as well as the potential need for transfusion with all its associated risks. Subsequently, the patient sign the consent. Pap smear result: LSIL. Urine test in office = Negative Procedure: During the procedure, the following steps were performed: A speculum was inserted, and acetic acid was applied. Colposcopy was conducted, allowing visualization of the transformation zone. Acetowhite lesions were identified at the 11+ 12 o'clock position. Cervical biopsies were obtained from the 11+ 12 o'clock position, followed by an endocervical curettage (ECC). Vaginoscopy of the upper vagina revealed no evidence of aceto-white lesions. Hemostasis was achieved using Monsel solution, and the patient tolerated the procedure well. Post-Procedure Instructions: The patient was advised to promptly contact the office or the after hours answering service or go to the emergency room if experiencing a temperature exceeding 100.4?F, abdominal pain, nausea/vomiting, or bleeding. Additionally, the patient was instructed to abstain from vaginal intercourse and bathtub use. The patient confirmed understanding of these instructions. Discharge Instructions: The patient was instructed to schedule a follow-up appointment in 2 weeks for further evaluation and management. Please note that this note was generated using a voice recognition program, and errors may have occurred during peoplesoft fscm developer. [id number]-[id number] of cervix including upper vagina with biopsy and ECC Procedure code (CPT) selection complete Assessment & Plan Assessment & Plan (1) ASCUS with positive high risk HPV cervical: Comment: 08/19, 08/20 co testing negative Code(s): R87.610 - Atypical squamous cells of undetermined significance on cytologic smear of cervix (ASC-US); R87.810 - Cervical high risk human papillomavirus (HPV) DNA test positive Category: Medical Plan: Given the patient has history of high-grade FLETCHER status post LEEP cone in 2018 and ascus HPV positive in 08/19 with no colposcopy although co testing was done in 08/20 was negative will proceed with colposcopy. Colposcopy done, see procedure note Orders: Orders AMB Colposcopy Today R87.610 - Atypical squamous cells of undetermined significance on cytologic smear of cervix (ASC-US), R87.810 - Cervical high risk human papillomavirus (HPV) DNA test positive Coding Level of Care Code Procedure Only Diagnoses ASCUS with positive high risk HPV cervical R87.610; R87.810 CPT Codes Colposcopy - CPT: 09722-[id number] of cervix including upper vagina with biopsy and ECC ([id number])
== END 2024-10-28 15:59 | disposition home or self-care (01) ==
LOC: HO.HWS 15:32
PROVIDERS: Visit Provider Obstetrics & Gynecology
DX: R87.610 Atypical squamous cells of undetermined significance on cytologic smear of cervix (ASC-US) (principal); R87.810 Cervical high risk human papillomavirus (HPV) DNA test positive
CPT/HCPCS: 57454

== ENCOUNTER 2025-01-27 14:35 | Outpatient (AMB) | payer MEDICAID, SELFPAY ==
--- NOTE | 2025-01-27 14:35 | MHC.OFFVIS ---
Intake Visit Reasons: colpo results Allergies No Known Allergies Allergy (Verified 10/28/24 15:40) HPI Comments Details: The patient scheduled a telehealth visit post colpo for follow-up. The patient is doing well with no complaints. The pathology showed the following: A. Endocervix, curettage: Fragments of endocervical and squamous mucosa with acute inflammation and reactive epithelial changes; negative for squamous intraepithelial lesion. B. Cervix, 11 o'clock, biopsy: Squamous mucosa within normal limits; no endocervical component seen; negative for squamous intraepithelial lesion. C. Cervix, 12 o'clock, biopsy: Squamous mucosa within normal limits; no endocervical component seen; negative for squamous intraepithelial lesion. 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 Reproductive History Menstrual Age of Menarche: 13 Review of Systems Const All systems reviewed & are unremarkable except as noted in HPI and below Reports as per HPI and Reports no additional complaints GI Reports no additional complaints Reports no additional complaints Telehealth Telehealth Telehealth Platform: [facility] Location of provider rendering services: practice address Location of patient: address on file Telehealth method: video Patient verbally consented to treatment: Yes Patient verbally consented to billing insurance company: Yes Patient informed of any privacy concerns related to visit: Yes Minutes spent on Phone/Video with Pt.: 2 Assessment & Plan Assessment & Plan (1) ASCUS with positive high risk HPV cervical: Comment: 08/19, 08/20 co testing negative Code(s): R87.610 - Atypical squamous cells of undetermined significance on cytologic smear of cervix (ASC-US); R87.810 - Cervical high risk human papillomavirus (HPV) DNA test positive Category: Medical Plan: Discussed with the patient the pathology results of the colposcopy biopsies & endocervical curettage . Discussed with the patient the sensitivity specificity, positive and negative predictive value in detecting cervical cancer in addition discussed the regression, persistence and progression rates. Recommended co-testing in 12 months, if cytology and or HPV are abnormal will proceed was colposcopy biopsy and endocervical curettage. Instructions given to the patient to schedule a co test appointment in 1 year. All questions answered the patient verbalized understanding. I spent a total of 20 minutes reviewing the chart, talking to the patient via video and documenting in the medical record. Coding Level of Care Code Tele Est Pt Level 3 (05172) Diagnoses ASCUS with positive high risk HPV cervical R87.610; R87.810
--- OUTSIDE RECORDS SUMMARY | 2025-01-27 16:10 | XMS_ITS | Clinical Summary ---
Author Organization [facility] [address] [place] [address] [place] [phone] Phone Care Team Providers Care Educational Therapy Teacher Name Role Phone Sandie Barrios MD Primary Care Provider [phone] Allergies No known active allergies Medications albuterol [...] split. 90 each 5 04/06/2024 5 Active dicyclomine (BENTYL) 10 mg capsuleIndicati ons:Periumbilic al abdominal pain Take 1 capsule (10 mg total) by mouth 4 (four) times a day (before meals and nightly). 120 each 11 10/08/2024 6 Active busPIRone (BUSPAR) 5 mg tablet Take 1 tablet (5 mg total) by mouth 2 (two) times a day. 180 tablet 11/19/2024 5 Active Active Problems Problem Noted Date Diagnosed Date Iron deficiency 02/11/2019 Anxiety 02/10/2019 Assessment & Plan (11/19/2024 10:02 AM EDT): Anxiety- patient reports that she suffers from anxiety daily, reports she over thinks, brought on by everyday stressors like finances, she states that she has constant thoughts and worries, reports difficulty sleeping at night because of this. No SI/HI. Start BuSpar 5 mg twice a day. 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 Asthma 01/02/2012 Depression 04/11/2011 Encounters Date Type Department Care Team Description 11/19/2024 9:30 AM EDT Office Visit Adult Medicine [address] [phone] Sandie Barrios MD PE (physical exam), annual (Primary Dx); Anxiety; Ingrown hair from Last 3 Months Immunizations Immunization Administration Dates Next Due Hepatitis B (Wrpsola-Q-Tqhpx , Recombivax HB-Adult) 19yo and older 11/25/2018,06/24/2018,05/20/2018 [...] PROCEDURE: HISTORICAL PE TUBES SECTION 10/03/2015 PROCEDURE: GA DELIVERY ONLY Medical History Medical History Date Comments Depression DX:Depression Asthma DX:Asthma Family History Medical History Relation Name Comments No Known Problems Brother 1 half pater nal No Known Problems Brother 2 half pater nal No Known Problems Daughter 1 06/16/09: Fely de jesus; healthy No Known Problems Daughter 2 10/03/2015; [...] No Known Problems Son 1 11/22/97; N ed; healthy No Known Problems Son 2 03/09/04; [...] Used Date Smoking Tobacco: Former Cigarettes 0.5 12 Q uit: 2016 Smokeless Tobacco: Never Alcohol Use Standard Drinks/Week Comments No 0 (1 standard drink = 0.6 oz pur e alcohol) Comments No Sex and Gender Information Value Date Recorded Sex Assigned at Not on file Legal Sex Female 4:51 AM EST Gender Identity Not on file Sexual Orientation Not on file Obstetrics History Last Filed Vital Signs Vital Sign Reading Time Taken Comments Blood Pressure 124/69 11/19/2024 9:29 AM EDT Pulse 82 11/19/2024 9:29 AM EDT Temperature 36.6 C (97.9 F) 04/05/2024 12:33 PM EST Respiratory Rate 16 04/05/2024 12:33 PM EST Oxygen Saturation - - Inhaled Oxygen Concentration - - Weight 88 kg (194 lb) 11/19/2024 9:29 AM EDT Height 160 cm (5' 3 ) 11/19/2024 9:29 AM EDT Body Mass Index 34.37 11/19/2024 9:29 AM EDT Plan of Treatment Upcoming Encounters Date Type Department Care Team (Late st Contact Info) Description 02/16/2025 2:00 PM EDT Office Visit Adult Medicine [address] [phone] Kecia Gaytan PA [address] [place] [address] 11/25/2025 9:30 AM EDT Office Visit [address] [phone] Sandie Barrios MD [address] [place] [phone] Health Maintenance Due Date Last Done Comments HPV Vaccines (1 - 3-dose SCDM series) 2008 Pneumococcal Vaccine: Pediatrics (0 to 5 Years) and At-Risk Patients (6 to 49 Years) (2 of 2 - PCV) 04/09/2017 04/09/2016 Social Influencers of Health Screening 03/31/2022 COVID-19 Vaccine ( - season) 2024 05/09/2021, 07/26/2020, 05/13/2020 Influenza Vaccine (#1) 2024 , 02/07/2020, 01/11/2019, Additional history exists DTaP,Tdap,and Td Vaccines (3 - Td or Tdap) 09/06/2025 09/07/2015, 04/11/2011 Breast Cancer Screening 10/19/2025 10/20/2023 Cervical Cancer Screening: Pap Smear 08/07/2027 08/06/2024, 12/04/2015, 12/04/2015 RSV Immunization Adult Patients (1 - 1-dose 75+ series) 2056 Hepatitis C Screening Completed 09/27/2011 HIV Screening Completed 03/08/2015 Hepatitis B Vaccines Completed 11/25/2018, 06/24/2018, 05/20/2018 Depression Screening Completed 11/19/2024 HIB Vaccines Aged Out No longer eligi [...] Procedure Name Priority Date/Time Associated Diagnosis Comments PAP SMEAR Routine 08/06/2024 2:24 PM EDT MG MAMMO DIGITAL SCREENING BILAT Routine 10/20/2023 2:26 PM EDT HIV SCREENING Routine 03/08/2015 HEPATITIS C SCREENING Routine 09/27/2011 from Last 3 Months or Most Recently Relevant to Health Maintenance Results * Pap smear (08/06/2024 2:24 PM EDT) Brushing/Spatula Cervix uteri structure / Unknown [facility] Provider LAB CYTOLOGY ORDERABLES F inal Result * MG Mammo Digital Screening bilat (10/20/2023 2:26 PM EDT) Anatomical Region Laterality Modality Breast Bilateral Mammography [facility] Provider IMG BI PROCEDURES Final R esult * HIV Screening (03/08/2015) HIV Screening abstracted Historical Provider HEALTH MAINTENANCE Final Result * Hepatitis C Screening (09/27/2011) Hepatitis C Screening abstracted [facility] Provider HEALTH MAINTENANCE Final Result from Last 3 Months or Most Recently Relevant to Health Maintenance [place] [phone] [facility] [place] [phone] Care Teams Educational Therapy Teacher Relationship Specialty Start Date End Date Sandie Barrios MD [address] [place] [phone] PCP - General Internal Medicine 12/09/22
== END 2025-01-27 14:51 | disposition home or self-care (01) ==
LOC: HO.HWS 14:35
PROVIDERS: Visit Provider Obstetrics & Gynecology
DX: R87.610 Atypical squamous cells of undetermined significance on cytologic smear of cervix (ASC-US) (principal); R87.810 Cervical high risk human papillomavirus (HPV) DNA test positive
CPT/HCPCS: 99499